=== PATIENT | male | born 1940 | race African-American/Black ===

== ENCOUNTER 2018-01-18 21:20 | Emergency (ER) | payer OTHER ==
[~2018-01-18] VITALS: Ht 167.6 cm; Wt 99.8 kg
[2018-01-18 21:20] VITALS: BP 149/94
[~2018-01-18 21:20] MED LIST: ALBU-136 IH; ARTOP OP; BACL10TA4 PO; CALC-232 PO; DABI75CA PO; DIVA125E1 PO; FINA5TAB5 PO; FLONAS NS; FURO-570 PO; GABA300C1 PO; MONT10TA35 PO; NITR0.4T95 SL; PANT40PD1 PO; PRED10TA5 PO; SENN-72 PO; SOTA80TA PO; SYN.025 PO; TAMS0.4C96 PO
[2018-01-18] MEDS ORDERED: LORA10TA19 PO (21:48)
[2018-01-18] MEDS ORDERED: LACT10SO1 PO (21:48)
[2018-01-18] MEDS ORDERED: SERMDI INH (21:48)
[2018-01-18] MEDS ORDERED: HYDR-5092 PO (21:48)
[2018-01-18] MEDS ORDERED: OMEP20TC12 PO (21:48)
[2018-01-18] MEDS ORDERED: ALBU3SOL83 IH (21:48)
[2018-01-18] MEDS ORDERED: fentaNYL 0.05 MG/ML VIAL IM ONE (22:05)
[2018-01-18 22:42] LABS: BASOPHILS # (AUTO) 0.2 K/uL (0.00-0.22); BASOPHILS % (AUTO) 2.4 % (0.0-2.0); EOSINOPHILS % (AUTO) 0.6 % (0.0-4.0); HEMATOCRIT 35.4 % (36-52); HEMOGLOBIN 10.1 g/dL (12.0-18.0); LYMPHOCYTES # (AUTO) 2.1 K/uL (2.0-11.5); LYMPHOCYTES % (AUTO) 29.4 % (20.5-51.1); MEAN CORPUSCULAR HEMOGLOBIN 19 pg (27-31); MEAN CORPUSCULAR HGB CONC 29 g/dL (33-37); MEAN CORPUSCULAR VOLUME 66.6 fL (80-94); MONOCYTES # (AUTO) 0.9 K/uL (0.8-1.0); MONOCYTES % (AUTO) 13.3 % (1.7-9.3); NEUTROPHILS # (AUTO) 3.9 K/uL (1.8-7.7); NEUTROPHILS % (AUTO) 54.3 % (42.2-75.2); PLATELET COUNT (AUTO) 244 K/uL (140-450); RED BLOOD CELL COUNT(AUTO) 5.31 MIL/uL (4.20-6.10); RED CELL DISTRIBUTION WIDTH 20.1 % (11.6-13.7); WHITE BLOOD COUNT (AUTO) 7.1 K/uL (4.8-10.8)
[2018-01-18 23:03] LABS: ALBUMIN 2.7 g/dL (3.4-5.0); ANION GAP 9.1 (8-16); ASPARTATE AMINOTRANSFERASE 8 U/L (15-37); CARBON DIOXIDE 33.3 mmol/L (21-32); CHLORIDE 104 mmol/L (98-107); CREATININE 1.2 mg/dL (0.7-1.3); GLUCOSE 121 mg/dL (74-106); LIPASE 61 U/L (73-393); POTASSIUM 4.4 mmol/L (3.5-5.1); SODIUM SERUM 142 mmol/L (136-145); TOTAL BILIRUBIN 0.4 mg/dL (0.0-1.0); UREA NITROGEN, BLOOD 17 mg/dL (7-18)
[2018-01-19 01:29] VITALS: BP 143/88
== END 2018-01-19 01:20 ==
LOC: MED 21:20
DX: R10.31 Right lower quadrant pain (principal); I48.91 Unspecified atrial fibrillation; J44.9 Chronic obstructive pulmonary disease, unspecified; E11.9 Type 2 diabetes mellitus without complications; K21.9 Gastro-esophageal reflux disease without esophagitis; I11.0 Hypertensive heart disease with heart failure; Z88.8 Allergy status to other drugs, medicaments and biological substances; Z88.0 Allergy status to penicillin; Z88.6 Allergy status to analgesic agent; Z79.899 Other long term (current) drug therapy
CPT/HCPCS: 36415; 74176; 80053; 83690; 85025; 96372; 99285; J3010

== ENCOUNTER 2018-05-03 09:31 | Inpatient (IN) | payer OTHER ==
[~2018-05-03] VITALS: Ht 167.6 cm; Wt 97.5 kg
[~2018-05-03 09:31] MED LIST changes: -ALBU-136 IH; +ALBU3SOL83 IH; -FLONAS NS; +HYDR-5092 PO; +LACT10SO1 PO; +LORA10TA19 PO; +OMEP20TC12 PO; -PANT40PD1 PO; +SERMDI INH
--- NOTE | 2018-05-03 09:31 | NUR ---
PATIENT BIBA TO BED 6 AT THIS TIME.
[2018-05-03 09:36] VITALS: BP 131/97
--- NOTE | 2018-05-03 09:45 | NUR ---
77 YO MALE BIB EMS FROM [facility] FOR SUDDEN ONSET OF SOB. ORIENTED TIMES 2 ON ARRIVAL. DENIES N/V/D; SKIN IS PINK/WARM/DRY; LUNGS: RHONCHI HEARD BL; HR EVEN AND REGULAR; PAIN OF 0/10 AT THIS TIME; VSS; PATIENT POSITIONED FOR COMFORT; HOB ELEVATED; BEDRAILS UP X2; BED DOWN. ER MD MADE AWARE OF PT STATUS.
--- NOTE | 2018-05-03 10:15 | NUR ---
LAB, RAD, AND RT AT BEDSIDE TO COLLECT LABS, ABG, AND CHEST X RAY
--- NOTE | 2018-05-03 10:28 | NUR ---
TECH AT BEDSIDE PREFORMING EKG
[2018-05-03 10:29] LABS: HEMATOCRIT 39.5 % (36-52); HEMOGLOBIN 10.9 g/dL (12.0-18.0); MEAN CORPUSCULAR HEMOGLOBIN 19 pg (27-31); MEAN CORPUSCULAR HGB CONC 28 g/dL (33-37); MEAN CORPUSCULAR VOLUME 68.2 fL (80-94); PLATELET COUNT (AUTO) 242 K/uL (140-450); RED BLOOD CELL COUNT(AUTO) 5.79 MIL/uL (4.20-6.10); RED CELL DISTRIBUTION WIDTH 21.6 % (11.6-13.7); WHITE BLOOD COUNT (AUTO) 9.9 K/uL (4.8-10.8)
[2018-05-03 10:46] LABS: ALBUMIN 2.8 g/dL (3.4-5.0); ANION GAP 5.9 (8-16); ASPARTATE AMINOTRANSFERASE 11 U/L (15-37); CARBON DIOXIDE 37.6 mmol/L (21-32); CHLORIDE 99 mmol/L (98-107); CREATININE 1.5 mg/dL (0.7-1.3); GLUCOSE 104 mg/dL (74-106); POTASSIUM 4.5 mmol/L (3.5-5.1); SODIUM SERUM 138 mmol/L (136-145); TOTAL BILIRUBIN 1.2 mg/dL (0.0-1.0); UREA NITROGEN, BLOOD 23 mg/dL (7-18)
--- NOTE | 2018-05-03 10:55 | NUR ---
ATTEMPTED IV, UNABLE TO OBTAIN AFTER 2 ATTEMPTS. INFORMED CHARGE NURSE.
[2018-05-03 11:16] LABS: LYMPHOCYTES % (MANUAL) 18 % (20-46); MONOCYTES % (MANUAL) 10 % (5-12)
[2018-05-03 11:24] LABS: APPEARANCE,URINE CLEAR (CLEAR); BILIRUBIN,URINE NEGATIVE (NEGATIVE); BLOOD, URINE NEGATIVE (NEGATIVE); COLOR,URINE YELLOW (YELLOW); LEUKOCYTE ESTERASE ,URINE NEGATIVE (NEGATIVE); NITRITE, URINE NEGATIVE (NEGATIVE); UGLUCOSE NEGATIVE (NEGATIVE)
[2018-05-03 11:28] LABS: RBC,URINE NONE SEEN /HPF (0-5); WBC,URINE 0-5 (RARE) /HPF (0-5)
--- NOTE | 2018-05-03 12:52 | NUR ---
PATIENT SLEEPING IN BED. STATES NO NEEDS. HE WANTS TO GO HOME.
[2018-05-03] MEDS ORDERED: ACETAMINOPHEN 325 MG TAB PO PRN (13:25)
[2018-05-03] MEDS ORDERED: DOCUSATE SODIUM 100 MG GELCAP PO PRN (13:25)
[2018-05-03] MEDS ORDERED: LORazepam 2 MG/ML VIAL IM/IVP PRN (13:25)
[2018-05-03] MEDS ORDERED: ONDANSETRON 4 MG/2 ML VIAL IM/IVP PRN (13:25)
[2018-05-03] MEDS ORDERED: DABI150C PO (13:55)
[2018-05-03] MEDS ORDERED: DIVA125E1 PO (13:55)
[2018-05-03] MEDS ORDERED: SYN.05 PO (13:59)
[2018-05-03 14:35] LABS: BARBITURATE, URINE NEG. ng/ml (NEG <=200); BENZODIAZEPINE, URINE NEG. ng/mL (NEG <=200); CANNABINOID, URINE NEG. ng/mL (NEG <=50); COCAINE, URINE NEG. ng/mL (NEG <=300); OPIATE, URINE POS. ng/mL (NEG <=2000); PHENCYCLIDINE SCREEN,URINE NEG. ng/mL (NEG <=25)
--- NOTE | 2018-05-03 14:36 | NUR ---
PATIENT ADMITTED TO DR CARMONA, [facility] STATUS. REPORT GIVEN TO KING FOR CONTINUED CARE. PATIENT STABLE UPON TRANSFER.
[2018-05-03 14:40] LABS: PROTHROMBIN TIME 12.7 secs (10.8-13.4)
[2018-05-03] MEDS ORDERED: HYDROcodone/APAP 10/325 MG 1 TAB TAB PO SCH (14:45)
--- NOTE | 2018-05-03 14:45 | NUR ---
PATIENT ADMITTED TO THE UNIT FROM ER. PATIENT IS LETHARGIC BUT AROUSABLE. PATIENT ON NON-REBREATHER MASK. O2 SAT 97% AT THIS TIME. BUE AND BLE +2 PITTING EDEMA NOTED. PATIENT HAS COOL EXTREMITIES. CAP REFILL >3 SECS. DIMINISHED LUNG SOUNDS NOTED. PATIENT PLACED ON TELE MONITORING. FALL PRECAUTIONS IN PLACE. WILL CONTINUE TO MONITOR
[2018-05-03 14:52] VITALS: BP 111/76
[2018-05-03] MEDS ORDERED: ALBUTEROL SULFATE/IPRATROPIU 3 ML SOL IH PRN (15:00)
[2018-05-03] MEDS ORDERED: FUROSEMIDE 40 MG/4 ML VIAL IVP SCH ×2 (15:00→17:00)
--- NOTE | 2018-05-03 15:00 | NUR ---
INFORMED DR THEODORE ABOUT PATIENT BEING ON A NON-REBREATHER MASK. PER DR THEODORE, KEEP PATIENT ON THE NON-REBREATHER FOR NOW AND CONTINUE TO MONITOR
[2018-05-03 15:10] LABS: FREE T4 (FREE THYROXINE) 1.09 ng/dL (0.76-1.46); PHOSPHORUS 3.8 mg/dL (2.5-4.9); THYROID STIMULATING HORMONE 1.03 uIU/mL (0.34-3.74)
[2018-05-03] MEDS ORDERED: SODIUM FERRIC GLUCONATE 125 MG in NACL 0.9% 100 ML IV SCH (16:00)
--- NOTE | 2018-05-03 16:10 | NUR ---
PATIENT EVALUATED BY DR SCOTT
[2018-05-03] MEDS: GABAPENTIN 300 MG CAP PO SCH (17:00)
[2018-05-03] MEDS: NACL 0.9% 1,000 ML IV SCH (17:07)
[2018-05-03] MEDS: FUROSEMIDE 40 MG/4 ML VIAL IVP SCH (18:01)
--- NOTE | 2018-05-03 18:02 | NUR ---
SCHEDULED GABAPENTIN PO NOT ADMINISTERED. PATIENT TOO LETHARGIC TO SWALLOW
[2018-05-03] MEDS: ALBUTEROL SULFATE/IPRATROPIU 3 ML SOL IH SCH (19:00)
--- NOTE | 2018-05-03 19:30 | NUR ---
PATIENT REPORT GIVEN AT BEDSIDE. PATIENT ASLEEP. NUCLEAR MED PRESENT IN THE ROOM FOR VQ SCAN
--- NOTE | 2018-05-03 19:30 | NUR ---
REPORT GIVEN BY BELINDA VANCE AT BEDSIDE FOR CONTINUITY OF CARE, PT IN STABLE CONDITION.
--- NOTE | 2018-05-03 19:33 | NUR ---
HOLD HHNTX DUE TO VQ SCAN AT BED SIDE
[2018-05-03 20:00] VITALS: BP 139/58
--- NOTE | 2018-05-03 20:00 | NUR ---
PT IN BED AOX2. PT WEARING MASK WITH O2 RUNNING AT 9 LITERS VIA VENTI MASK. PT SKIN INTACT WITH PITTING EDEMA ON ALL 4 EXTREMITIES. PLUS 4 ON FEET, PLUS 3 ON BILATERAL LOWER LEGS. AND PLUS 1 ON UPPER EXTREMITIES. V/S FOLLOWS T 97.6 P 58 R 18 B/P 113/78 02 97% WITH VENTI MASK.
[2018-05-03] MEDS: POLYVINYL ALCOHOL 1.4% OP 15 ML SOL OP SCH (21:00)
[2018-05-03] MEDS: DABIGATRAN ETEXILATE MESYLAT 75 MG CAP PO SCH (21:00)
--- NOTE | 2018-05-03 21:00 | NUR ---
PT IN BED WITH SIDE RAILS X2 UP AND ALL FALLS PRECAUTIONS IN PLACE. ABD DISTENDED WITH NO C/O PAIN IN ABDOMEN. BOWEL SOUNDS PRESENT. PT GIVEN AL SCHEDULED MEDS, EXCEPT FOR ARTIFICIAL TEARS AND PRADAXA WHICH ARE UNAVAILABLE AT THIS TIME. PT HAS NO C/O VOICED.
--- NOTE | 2018-05-03 21:30 | NUR ---
PT TURNED , CHANGED AND REPOSITIONED. ALL FALLS PRECAUTIONS IN PLACE. AND CALL RUBIO IN REACH.
[2018-05-03] MEDS: SOTALOL 80 MG TAB PO SCH (22:05)
[2018-05-03] MEDS: LACTULOSE 20 GM/30 ML UDC PO SCH (22:05)
[2018-05-03] MEDS: TAMSULOSIN 0.4 MG CAP PO SCH (22:06)
[2018-05-03] MEDS: DIVALPROEX SPRINKLES 125 MG CAPDR PO SCH (22:06)
[2018-05-03] MEDS: BACLOFEN 10 MG TAB PO SCH (22:06)
[2018-05-03] MEDS: SENNA 8.6 MG TAB PO SCH (22:07)
[2018-05-04] VITALS: BP 113/78
--- NOTE | 2018-05-04 | NUR ---
PT IN BED ALL FALLS PRECAUTIONS IN PLACE AND CALL RUBOI IN REACH. V/S FOLLOWS: T 97.2 P 78 R 18 B/P 139/85 02 91% WITH VENTI MASK AT 9 LITERS. PT TURN, CHANGED AND REPOSITIONED. NO C/O OF PAIN OR DISTRESS VOICED BY RESIDENT. ALL REQUESTED NEEDS ATTENDED BY STAFF.
[2018-05-04 04:00] VITALS: BP 131/88
--- NOTE | 2018-05-04 04:00 | NUR ---
PT C/O OF VENTI MASK SMELLING BADLY. SPOKE WITH RT CARMEN REGARDING ALTERNATIVE SUPPLIMENTAL 02. PRIMARY NURSE SUGGESTED OXIMIZER. RT SAID THAT IT WAS OK AND TO START WITH ABOUT 3 LITERS TO STAT PT AROUND 90%. PT PLACED ON OXIMIZER AND IS MORE COMFORTABLE. PT WAS CHANGED BUT REFUSED TO TURN. MOUTH CARE PROVIDED. V/S FOLLOWS: T 96.7 P 88 R 20 B/P 131/88 02 AT 21/2 LITERS OF 02 VIA OXIMIZER.
[2018-05-04] MEDS: LEVOTHYROXINE 0.025 MG TAB PO SCH (06:55)
[2018-05-04] MEDS: PANTOPRAZOLE 40 MG TABEC PO SCH (06:55)
[2018-05-04 07:25] LABS: BASOPHILS % (AUTO) 0.4 % (0.0-2.0); EOSINOPHILS % (AUTO) 0.1 % (0.0-4.0); HEMATOCRIT 40.8 % (36-52); HEMOGLOBIN 11.1 g/dL (12.0-18.0); LYMPHOCYTES # (AUTO) 1.5 K/uL (2.0-11.5); LYMPHOCYTES % (AUTO) 17.8 % (20.5-51.1); MEAN CORPUSCULAR HEMOGLOBIN 19 pg (27-31); MEAN CORPUSCULAR HGB CONC 27 g/dL (33-37); MONOCYTES % (AUTO) 11.8 % (1.7-9.3); NEUTROPHILS # (AUTO) 5.7 K/uL (1.8-7.7); NEUTROPHILS % (AUTO) 69.9 % (42.2-75.2); PLATELET COUNT (AUTO) 265 K/uL (140-450); RED BLOOD CELL COUNT(AUTO) 5.99 MIL/uL (4.20-6.10); RED CELL DISTRIBUTION WIDTH 21.6 % (11.6-13.7); WHITE BLOOD COUNT (AUTO) 8.2 K/uL (4.8-10.8)
[2018-05-04] MEDS: ALBUTEROL SULFATE/IPRATROPIU 3 ML SOL IH SCH ×3 (07:30→19:29)
--- NOTE | 2018-05-04 07:30 | NUR ---
ENDORSED CARE TO LOURDES RN DAYSHIFT NURSE AT BEDSIDE FOR CONTINUITY OF CARE, PT IN STABLE CONDITION.
--- NOTE | 2018-05-04 07:35 | NUR ---
RECEIVED PT FROM DATA COLLECTION INTERVIEWER NURSE, PT IS AWAKE AND LYING ON THE BED WITH SIDE RAILS UP AND CALL LIGHT WITHIN REACH, SAFETY AND FALL PRECAUTION ENFORCED. PT HAS AN IV LINE ON THE LEFT IJ G. 20 WITH NS INFUSING AT 10ML/HR, INTACT, PT IS ON A VENTURI MASK AT 9L. PT DENIES PAIN, RESPIRATION EVEN, ALERT AND CONVERSANT, NO SOB NOTED AND WILL CONTINUE TO MONITOR PT.
--- NOTE | 2018-05-04 07:38 | NUR ---
RT IS ON THE BEDSIDE AND GIVING BREATHING TX TO PT.
--- NOTE | 2018-05-04 07:58 | NUR ---
PATIENT HAS BEEN SCREENED AND CATEGORIZED HIGH NUTRITION RISK. PATIENT WILL BE SEEN WITHIN 1-2 DAYS OF ADMISSION. 05/04/18-05/05/[address]
[2018-05-04 08:00] VITALS: BP 123/69
[2018-05-04 08:16] LABS: MAGNESIUM 1.9 mg/dL (1.8-2.4); PHOSPHORUS 2.6 mg/dL (2.5-4.9)
[2018-05-04 08:17] LABS: CHOL/HDL RATIO 2.6 (1-4.5)
[2018-05-04 08:21] LABS: ANION GAP 4.9 (8-16); CARBON DIOXIDE 38.8 mmol/L (21-32); CHLORIDE 105 mmol/L (98-107); CREATININE 1.1 mg/dL (0.7-1.3); GLUCOSE 90 mg/dL (74-106); POTASSIUM 3.7 mmol/L (3.5-5.1); SODIUM SERUM 145 mmol/L (136-145); UREA NITROGEN, BLOOD 19 mg/dL (7-18)
[2018-05-04 08:22] LABS: FOLIC ACID 19.7 ng/mL (>3.0)
[2018-05-04] MEDS ORDERED: NON-FORMULARY ITEM (Calcium/Vitamin D (Calcium 500 + D 500 Mg-200 Iu) 1 TAB) PO SCH (09:00)
[2018-05-04] MEDS: FUROSEMIDE 40 MG/4 ML VIAL IVP SCH ×2 (09:51→18:07)
[2018-05-04] MEDS: LACTULOSE 20 GM/30 ML UDC PO SCH ×2 (09:52→21:00)
[2018-05-04] MEDS: BACLOFEN 10 MG TAB PO SCH ×2 (09:52→21:26)
[2018-05-04] MEDS: predniSONE 10 MG TAB PO SCH (09:53)
[2018-05-04] MEDS: DIVALPROEX SPRINKLES 125 MG CAPDR PO SCH ×2 (09:53→21:27)
[2018-05-04] MEDS: LORATADINE 10 MG TAB PO SCH (09:53)
[2018-05-04] MEDS: CALCIUM CARB/VIT-D 500 MG/200 IU 1 TAB PO SCH (09:54)
[2018-05-04] MEDS: MONTELUKAST SODIUM 10 MG TAB PO SCH (09:54)
[2018-05-04] MEDS: FINASTERIDE 5 MG TAB PO SCH (09:55)
[2018-05-04] MEDS: SOTALOL 80 MG TAB PO SCH ×2 (09:55→21:26)
[2018-05-04] MEDS: GABAPENTIN 300 MG CAP PO SCH ×3 (09:55→18:07)
[2018-05-04] MEDS: SENNA 8.6 MG TAB PO SCH ×2 (09:55→21:26)
--- NOTE | 2018-05-04 10:00 | NUR ---
PT IS AWAKE AND VITAL SIGNS CHECKED PER PARAMETER, MEDICATIONS GIVEN VIA ORAL AND PT TOLERATED IT. NO SIGN OF DISTRESS NOTED. WILL MONITOR PT.
[2018-05-04] MEDS: DABIGATRAN ETEXILATE MESYLAT 75 MG CAP PO SCH ×2 (10:28→21:36)
[2018-05-04] MEDS: POLYVINYL ALCOHOL 1.4% OP 15 ML SOL OP SCH ×2 (10:29→21:27)
[2018-05-04 12:00] VITALS: BP 113/62
--- NOTE | 2018-05-04 12:01 | NUR ---
05/04/18 RD INITIAL ASSESSMENT COMPLETED PLEASE REFER TO NUTRITION ASSESSMENT UNDER CARE ACTIVITY FOR ESTIMATED NUTRITIONAL NEEDS. 1. CONTINUE PUREE CCHO 60 GM PUREE DIET WITH NECTAR THICK LIQUIDS TOLERATED 2. RD TO FOLLOW-UP 3-5 DAYS, MODERATE RISK FRANKY CHOWDARY, RD
[2018-05-04] MEDS: NACL 0.9% 1,000 ML IV SCH (14:50)
[2018-05-04 16:00] VITALS: BP 127/100
--- NOTE | 2018-05-04 18:13 | NUR ---
PT IS AWAKE AND EATING HIS DINNER, VITAL SIGNS CHECKED AND IS WITHIN NORMAL LIMIT. MEDICATIONS GIVEN VIA IV PUSH AND ORAL AND PT TOLERATED IT. NO SIGN OF DISTRESS NOTED AND WILL MONITOR PT.
--- NOTE | 2018-05-04 19:00 | NUR ---
DIAMOND CATHETER WAS INSERTED TO PT NOW.
--- NOTE | 2018-05-04 19:20 | NUR ---
ENDORSED PT TO SPINNING FRAME FIXER NURSERICARDO FOR CONTINUITY OF CARE, PT IS STABLE AT THIS TIME.
--- NOTE | 2018-05-04 19:21 | NUR ---
RECEIVED REPORT FROM DAYSHIFT NURSE AT BEDSIDE FOR CONTINUITY OF CARE. PT AAOX2. PT IV NOTED LIJ 20G NS TKO. NO SOB NO S/S OF DISTRESS ON VENTURI MASK 5L. DIAMOND IN PLACE. BED LOWERED CALL LIGHT WITHIN REACH WILL CONTINUE TO MONITOR.
[2018-05-04 20:00] VITALS: BP 92/57
[2018-05-04] MEDS: TAMSULOSIN 0.4 MG CAP PO SCH (21:26)
[2018-05-05] VITALS: BP 114/63
[2018-05-05] MEDS: Z-GUARD PASTE TP SCH ×2 (01:03→13:00)
[2018-05-05 04:00] VITALS: BP 120/75
[2018-05-05] MEDS: PANTOPRAZOLE 40 MG TABEC PO SCH (06:45)
[2018-05-05] MEDS: LEVOTHYROXINE 0.025 MG TAB PO SCH (06:45)
--- NOTE | 2018-05-05 07:24 | NUR ---
ENDORSED REPORT TO DAYSHIFT NURSE AT BEDSIDE FOR CONTINUITY OF CA
--- NOTE | 2018-05-05 07:26 | NUR ---
RECEIVED REPORT FROM PM NURSE AT BEDSIDE. PT LYING ON HIS BED. PT ON CONTACT ISOLATION FOR HX M,RSA NARES. HAS LFT IJ 20 G, IVF INFUSING WELL. HAS DIAMOND CATHETER IN PLACE. PT IS ON VENTURI MASK 5L. PT IS IS IN SEMI FOWLERS POSITION. PT FALL RISK. CALL LIGHT WITHIN PT REACH. PLACED SUCTION TUBE NEAR PT. NO SIGN OF DISTRESS NOTED. UPDATE BOARD. INFORMED TO USE CALL LIGHT FOR NAY HELP. WILL CONTINUE TO MONITOR OT.
[2018-05-05] MEDS: ALBUTEROL SULFATE/IPRATROPIU 3 ML SOL IH SCH ×3 (07:44→18:34)
--- NOTE | 2018-05-05 07:59 | NUR ---
POST HHN THERAPY PLACED ON AN OXYMIZER AT 6LPM FOR BREAKFAST MEAL
[2018-05-05 08:00] VITALS: BP 105/52
[2018-05-05] MEDS: LORATADINE 10 MG TAB PO SCH (09:00)
[2018-05-05] MEDS: FUROSEMIDE 40 MG/4 ML VIAL IVP SCH ×2 (09:00→17:01)
[2018-05-05] MEDS: SENNA 8.6 MG TAB PO SCH ×2 (09:00→20:34)
[2018-05-05] MEDS: POLYVINYL ALCOHOL 1.4% OP 15 ML SOL OP SCH ×2 (09:00→21:00)
[2018-05-05] MEDS: CALCIUM CARB/VIT-D 500 MG/200 IU 1 TAB PO SCH (09:00)
[2018-05-05] MEDS: MONTELUKAST SODIUM 10 MG TAB PO SCH (09:00)
[2018-05-05] MEDS: BACLOFEN 10 MG TAB PO SCH ×2 (09:00→20:35)
[2018-05-05] MEDS: LACTULOSE 20 GM/30 ML UDC PO SCH ×2 (09:00→21:00)
[2018-05-05] MEDS: DIVALPROEX SPRINKLES 125 MG CAPDR PO SCH ×2 (09:00→20:36)
[2018-05-05] MEDS: FERROUS SULFATE 325 MG TABEC PO SCH (09:00)
[2018-05-05] MEDS: FINASTERIDE 5 MG TAB PO SCH (09:00)
[2018-05-05] MEDS: ASCORBIC ACID 500 MG TAB PO SCH (09:00)
[2018-05-05] MEDS: GABAPENTIN 300 MG CAP PO SCH ×3 (09:00→17:02)
[2018-05-05] MEDS: SOTALOL 80 MG TAB PO SCH ×2 (09:00→20:35)
[2018-05-05] MEDS: predniSONE 10 MG TAB PO SCH (09:00)
[2018-05-05] MEDS: DABIGATRAN ETEXILATE MESYLAT 75 MG CAP PO SCH ×2 (09:00→20:36)
[2018-05-05 09:16] LABS: BASOPHILS # (AUTO) 0.1 K/uL (0.00-0.22); BASOPHILS % (AUTO) 0.7 % (0.0-2.0); EOSINOPHILS % (AUTO) 0.2 % (0.0-4.0); HEMOGLOBIN 10.9 g/dL (12.0-18.0); LYMPHOCYTES # (AUTO) 1.8 K/uL (2.0-11.5); LYMPHOCYTES % (AUTO) 17.6 % (20.5-51.1); MEAN CORPUSCULAR HEMOGLOBIN 19 pg (27-31); MEAN CORPUSCULAR HGB CONC 28 g/dL (33-37); MEAN CORPUSCULAR VOLUME 67.7 fL (80-94); MONOCYTES # (AUTO) 1.1 K/uL (0.8-1.0); MONOCYTES % (AUTO) 10.4 % (1.7-9.3); NEUTROPHILS # (AUTO) 7.3 K/uL (1.8-7.7); NEUTROPHILS % (AUTO) 71.1 % (42.2-75.2); PLATELET COUNT (AUTO) 256 K/uL (140-450); RED BLOOD CELL COUNT(AUTO) 5.76 MIL/uL (4.20-6.10); RED CELL DISTRIBUTION WIDTH 21.4 % (11.6-13.7); WHITE BLOOD COUNT (AUTO) 10.3 K/uL (4.8-10.8)
[2018-05-05 09:29] LABS: ANION GAP 3.9 (8-16); CARBON DIOXIDE 38.9 mmol/L (21-32); CHLORIDE 105 mmol/L (98-107); CREATININE 1.3 mg/dL (0.7-1.3); GLUCOSE 124 mg/dL (74-106); MAGNESIUM 1.8 mg/dL (1.8-2.4); PHOSPHORUS 1.7 mg/dL (2.5-4.9); SODIUM SERUM 145 mmol/L (136-145); UREA NITROGEN, BLOOD 18 mg/dL (7-18)
[2018-05-05 09:31] LABS: POTASSIUM 2.8 mmol/L (3.5-5.1)
--- NOTE | 2018-05-05 10:02 | NUR ---
CM NOTE PATIENT HAS SECONDARY IEHP. PER IEHP SPIKE CHEN PH# [phone], IF PATIENT IS GOING TO SNF, FOR [facility] AUTH# [id number]. CHARGE NURSE PARIS HERNANDEZ.
--- NOTE | 2018-05-05 10:27 | NUR ---
ADMINISTERED MEDS TO PT ORDERED. CRUSHED PILLS AND MIXED WITH APPLE SAUCE. PT TOLERATED HIS MEDS WELL. NO SIGN OF DISTRESS NOTED. PT HELPED WITH REPOSITIONING. CALL LIGHT WITHIN PT REACH. WILL CONTINUE TO MONITOR PT.
[2018-05-05] MEDS ORDERED: MAG SULF 2000 MG/WATER PREMIX 50 ML IV SCH (11:00)
[2018-05-05] MEDS ORDERED: POTASSIUM CHLORIDE 10 MEQ TABER PO SCH (11:00)
[2018-05-05] MEDS: SODIUM PHOS / POTASSIUM PHOS 1 PKT PDR PO SCH ×2 (11:49→17:01)
[2018-05-05 12:00] VITALS: BP 103/57
[2018-05-05] MEDS ORDERED: POTASSIUM CHLORIDE 40 MEQ, LIDOCAINE MPF 1% - 5 mL VIAL 25 MG in NACL 0.9% 250 ML IV SCH (12:00)
--- NOTE | 2018-05-05 12:00 | NUR ---
CHECKED ON PT. REPOSITIONED PT AND ADMINISTERED MEDS ORDERED. TOLERATED WELL. NO SIGN OF DISTRESS NOTED. PLACED CALL LIGHT WITHIN REACH. ALL SAFETY MEASURE IN PLACE. WILL CONTINUE TO MONITOR PT.
--- NOTE | 2018-05-05 13:22 | NUR ---
S.T. Bedside swallow eval completed. See report for details. Pt presents with moderate oral dysphagia c/b labial leakage and limited lingual ROM. Pt is impulsive, and drinks large amounts at one time, which can sometimes result in coughing, per TREATING PLANT OPERATOR. Pt also did not agree to sitting fully upright for p.o. intake. Recommend: 1) Continue current diet textures of puree and thin liquids. 2) 1:1 feeder with strict aspiration precautions, pacing & controlling liquid intake 3) P.O. meds to be crushed. No further tx indicated at this time as pt does not present as strong rehab candidate, and non-compliance. DC to [facility]. Time [id number]
[2018-05-05] MEDS: HYDROcodone/APAP 5/325 MG 1 TAB TAB PO PRN (13:30)
--- NOTE | 2018-05-05 13:44 | NUR ---
SATURATION 97% ON SUPPLEMENTAL OXYGEN AT 5LPM VIA OXYMIZER POST HHN THERAPY TITRATED FIO2 TO 3 LPM SITAL/RN NOTIFIED
[2018-05-05] MEDS: NACL 0.9% 1,000 ML IV SCH (14:50)
--- NOTE | 2018-05-05 15:00 | NUR ---
CHECKED ON PT. ASSISTED REAL ESTATE MANAGER TO REPOSITION PT. HAS SMALL BM. CALL LIGHT WITHIN PT REACH. DENIES ANY PAIN. NO SIGN OF DISTRESS NOTED. WILL CONTINUE TO MONITOR PT.
[2018-05-05 16:00] VITALS: BP 103/61
[2018-05-05 17:03] LABS: ANION GAP 2.7 (8-16); CARBON DIOXIDE 35.6 mmol/L (21-32); CHLORIDE 110 mmol/L (98-107); CREATININE 1.3 mg/dL (0.7-1.3); GLUCOSE 137 mg/dL (74-106); POTASSIUM 4.3 mmol/L (3.5-5.1); SODIUM SERUM 144 mmol/L (136-145); UREA NITROGEN, BLOOD 19 mg/dL (7-18)
--- NOTE | 2018-05-05 17:14 | NUR ---
ADMINISTERED MEDS TO PT ORDERED TOLERATED WELL. NO SIGN OF DISTRESS NOTED. WILL CONTINUE TO MONITOR PT.
--- NOTE | 2018-05-05 18:30 | NUR ---
CHECKED ON PT. EMERGENCY SERVICES PROFESSIONAL HELPING PT TO FEED. CHANGED THE PT. NO SIGN OF DISTRESS NOTED. ALL SAFETY MEASURE IN PLACE. WILL CONTINUE TO MONITOR PT.
--- NOTE | 2018-05-05 19:10 | NUR ---
ENDORSED PT TO PM NURSE AT BEDSIDE. PT LYING COMFORTABLY ON HIS BED. NO SIGN OF DISTRESS NOTED. PT IN STABLE CONDITION.
--- NOTE | 2018-05-05 19:11 | NUR ---
RECEIVED REPORT FROM DAYSHIFT NURSE AT BEDSIDE FOR CONTINUITY OF CARE. PT AAOX2. PT IV NOTED LIJ 20G TKO. NO SOB NO S/S OF DISTRESS ON 3L OXIMYZER. DIAMOND IN PLACE. BED LOWERED CALL LIGHT WITHIN REACH. WILL CONTINUE TO MONITOR.
[2018-05-05 19:52] VITALS: BP 105/82
[2018-05-05] MEDS: TAMSULOSIN 0.4 MG CAP PO SCH (20:35)
--- NOTE | 2018-05-05 21:00 | NUR ---
PT BECOMES CONFUSED. PT TOOK MEDS CRUSHED IN APPLE SAUCE PT ABLE TO DRINK THIN LIQUIDS WELL. WILL CONTINUE TO MONITOR.
[2018-05-06] VITALS: BP 89/52
[2018-05-06] MEDS: Z-GUARD PASTE TP SCH ×2 (01:05→13:40)
[2018-05-06 03:55] VITALS: BP 108/68
[2018-05-06] MEDS: HYDROcodone/APAP 5/325 MG 1 TAB TAB PO PRN (05:04)
[2018-05-06] MEDS: SODIUM PHOS / POTASSIUM PHOS 1 PKT PDR PO SCH (06:38)
[2018-05-06] MEDS: LEVOTHYROXINE 0.025 MG TAB PO SCH (06:38)
[2018-05-06] MEDS: PANTOPRAZOLE 40 MG TABEC PO SCH (06:39)
--- NOTE | 2018-05-06 07:26 | NUR ---
ENDORSED REPORT TO DAYSHIFT NURSE AT BEDSIDE FOR CONTINUITY OF CARE.
[2018-05-06 07:35] LABS: ANION GAP 0.1 (8-16); CARBON DIOXIDE 37.7 mmol/L (21-32); CHLORIDE 112 mmol/L (98-107); CREATININE 1.2 mg/dL (0.7-1.3); GLUCOSE 101 mg/dL (74-106); POTASSIUM 3.8 mmol/L (3.5-5.1); SODIUM SERUM 146 mmol/L (136-145); UREA NITROGEN, BLOOD 19 mg/dL (7-18)
[2018-05-06] MEDS: ALBUTEROL SULFATE/IPRATROPIU 3 ML SOL IH SCH ×3 (07:35→19:27)
[2018-05-06 07:37] LABS: MAGNESIUM 1.9 mg/dL (1.8-2.4); PHOSPHORUS 2.7 mg/dL (2.5-4.9)
[2018-05-06 07:40] LABS: BASOPHILS % (AUTO) 0.5 % (0.0-2.0); EOSINOPHILS % (AUTO) 0.2 % (0.0-4.0); HEMATOCRIT 37.9 % (36-52); HEMOGLOBIN 10.5 g/dL (12.0-18.0); LYMPHOCYTES # (AUTO) 2.1 K/uL (2.0-11.5); LYMPHOCYTES % (AUTO) 22.2 % (20.5-51.1); MEAN CORPUSCULAR HEMOGLOBIN 19 pg (27-31); MEAN CORPUSCULAR HGB CONC 28 g/dL (33-37); MEAN CORPUSCULAR VOLUME 68.4 fL (80-94); MONOCYTES # (AUTO) 1.4 K/uL (0.8-1.0); MONOCYTES % (AUTO) 14.3 % (1.7-9.3); NEUTROPHILS # (AUTO) 5.9 K/uL (1.8-7.7); NEUTROPHILS % (AUTO) 62.8 % (42.2-75.2); PLATELET COUNT (AUTO) 256 K/uL (140-450); RED BLOOD CELL COUNT(AUTO) 5.53 MIL/uL (4.20-6.10); RED CELL DISTRIBUTION WIDTH 21.5 % (11.6-13.7); WHITE BLOOD COUNT (AUTO) 9.5 K/uL (4.8-10.8)
[2018-05-06 08:00] VITALS: BP 100/68
[2018-05-06] MEDS: POLYVINYL ALCOHOL 1.4% OP 15 ML SOL OP SCH ×2 (09:00→20:56)
--- NOTE | 2018-05-06 09:45 | NUR ---
ADMINISTERED MEDS TO PT ORDERED. TOLERAED WELL. NO SIGN OF DISTRESS NOTED. HELPED PT TO BE PULLED UP WITH HELP OF STUDENT NURSE. NO SIGN OF DISTRESS NOTED. WILL CONTINUE TO MONITOR PT.
[2018-05-06] MEDS: DIVALPROEX SPRINKLES 125 MG CAPDR PO SCH ×2 (09:48→20:43)
[2018-05-06] MEDS: predniSONE 10 MG TAB PO SCH (09:48)
[2018-05-06] MEDS: MONTELUKAST SODIUM 10 MG TAB PO SCH (09:49)
[2018-05-06] MEDS: FERROUS SULFATE 325 MG TABEC PO SCH (09:49)
[2018-05-06] MEDS: ASCORBIC ACID 500 MG TAB PO SCH (09:49)
[2018-05-06] MEDS: FINASTERIDE 5 MG TAB PO SCH (09:49)
[2018-05-06] MEDS: CALCIUM CARB/VIT-D 500 MG/200 IU 1 TAB PO SCH (09:50)
[2018-05-06] MEDS: SENNA 8.6 MG TAB PO SCH ×2 (09:50→20:44)
[2018-05-06] MEDS: BACLOFEN 10 MG TAB PO SCH ×2 (09:51→20:44)
[2018-05-06] MEDS: SOTALOL 80 MG TAB PO SCH ×2 (09:51→20:44)
[2018-05-06] MEDS: LORATADINE 10 MG TAB PO SCH (09:52)
[2018-05-06] MEDS: FUROSEMIDE 40 MG/4 ML VIAL IVP SCH ×2 (09:56→17:00)
[2018-05-06] MEDS: LACTULOSE 20 GM/30 ML UDC PO SCH ×2 (10:06→20:47)
[2018-05-06] MEDS: GABAPENTIN 300 MG CAP PO SCH ×3 (10:07→17:37)
[2018-05-06] MEDS: DABIGATRAN ETEXILATE MESYLAT 75 MG CAP PO SCH ×2 (10:12→20:47)
[2018-05-06 12:00] VITALS: BP 91/53
--- NOTE | 2018-05-06 13:40 | NUR ---
ADMINISTERED MEDS TO PT ORDERED. TOLERATED WELL. NO SIGN OF DISTRESS NOTED. WILL CONTINUE TO MONITOR PT.
[2018-05-06] MEDS: NACL 0.9% 1,000 ML IV SCH (14:50)
--- NOTE | 2018-05-06 15:30 | NUR ---
CHECKED ON PT. SLEEPING COMFORTABLY IN HER BED. NO SIGN OF DISTRESS NOTED. WILL CONTINUE TO MONITOR PT.
[2018-05-06 16:00] VITALS: BP 92/72
--- NOTE | 2018-05-06 17:40 | NUR ---
ADMINISTERED MEDS TO PT ORDERED. HELD LASIX , BP 95/66. NO SIGN OF DISTRESS NOTED. ALL SAFETY MEASURE IN PLACE.WILL CONTINUE TO MONITOR PT.
--- NOTE | 2018-05-06 18:30 | NUR ---
CHECKED ON PT. LYING COMFORTABLY ON BED. PT ASKING FOR LACTULOSE. INFORMED THAT WILL BE GIVEN AT 2100 AT THE SCHEDULED TIME. NO SIGN OF DISTRESS NOTED.ALL SAFETY MEASURE IN PLACE. WILL CONTINUE CONTINUE TO MONITOR PT.
--- NOTE | 2018-05-06 19:10 | NUR ---
ENDORSED PT TO PM NURSE AT BEDSIDE. PT IN STABLE CONDITION.
--- NOTE | 2018-05-06 19:11 | NUR ---
RECEIVED REPORT FROM AM RN AT BEDSIDE FOR CONTINUITY OF CARE. PT A/Ox2. PT IV NOTED LIJ 20G TKO. NO SOB NO S/S OF DISTRESS ON 3L OXIMIZER. DIAMOND CATHETER IN PLACE. BED LOWERED CALL LIGHT WITHIN REACH. WILL CONTINUE TO MONITOR.
[2018-05-06 20:00] VITALS: BP 113/69
[2018-05-06] MEDS: TAMSULOSIN 0.4 MG CAP PO SCH (20:44)
--- NOTE | 2018-05-06 21:45 | NUR ---
PATIENT ASLEEP. WILL CONTINUE TO MONITOR.
[2018-05-07] VITALS: BP 122/71
--- NOTE | 2018-05-07 00:03 | NUR ---
ROUNDS MADE, VITALS TAKEN. NO SOB OR DISTRESS NOTED.
[2018-05-07] MEDS: HYDROcodone/APAP 5/325 MG 1 TAB TAB PO PRN ×2 (00:08→08:44)
[2018-05-07] MEDS: Z-GUARD PASTE TP SCH (02:03)
--- NOTE | 2018-05-07 02:10 | NUR ---
PATIENT ASLEEP, EYES CLOSED, VISIBLE CHEST RISE AND FALL NOTED. WILL CONTINUE TO MONITOR.
[2018-05-07 04:00] VITALS: BP 115/78
--- NOTE | 2018-05-07 04:01 | NUR ---
VITALS TAKEN, NO SOB OR DISTRESS NOTED. WILL CONTINUE TO MONITOR.
[2018-05-07] MEDS: LEVOTHYROXINE 0.025 MG TAB PO SCH (06:03)
[2018-05-07] MEDS: PANTOPRAZOLE 40 MG TABEC PO SCH (06:44)
[2018-05-07 06:56] LABS: BASOPHILS % (AUTO) 0.4 % (0.0-2.0); EOSINOPHILS # (AUTO) 0.1 K/uL (0-0.4); EOSINOPHILS % (AUTO) 0.6 % (0.0-4.0); HEMATOCRIT 36.9 % (36-52); HEMOGLOBIN 10.3 g/dL (12.0-18.0); LYMPHOCYTES # (AUTO) 2.4 K/uL (2.0-11.5); LYMPHOCYTES % (AUTO) 26.2 % (20.5-51.1); MEAN CORPUSCULAR HEMOGLOBIN 19 pg (27-31); MEAN CORPUSCULAR HGB CONC 28 g/dL (33-37); MEAN CORPUSCULAR VOLUME 68.1 fL (80-94); MONOCYTES # (AUTO) 1.3 K/uL (0.8-1.0); MONOCYTES % (AUTO) 14.1 % (1.7-9.3); NEUTROPHILS # (AUTO) 5.3 K/uL (1.8-7.7); NEUTROPHILS % (AUTO) 58.7 % (42.2-75.2); PLATELET COUNT (AUTO) 260 K/uL (140-450); RED BLOOD CELL COUNT(AUTO) 5.42 MIL/uL (4.20-6.10); RED CELL DISTRIBUTION WIDTH 21.8 % (11.6-13.7)
--- NOTE | 2018-05-07 07:10 | NUR ---
ENDORSED PATIENT TO AM SHIFT RN. PATIENT IN STABLE CONDITION.
--- NOTE | 2018-05-07 07:11 | NUR ---
RECEIVED REPORT FROM PM NURSE AT BEDSIDE. PT LYING COMFORTABLY, COMMUNICATING WELL. NO SIGN OF DISTRESS NOTED. CALL LIGHT WITHIN REACH. IVF INFUSING WELL. INFORMED TO CALL LIGHT FOR ANY HELP. WILL CONTINUE TO MONITOR PT.
[2018-05-07] MEDS: ALBUTEROL SULFATE/IPRATROPIU 3 ML SOL IH SCH (07:17)
[2018-05-07 07:29] LABS: ANION GAP 3.2 (8-16); CARBON DIOXIDE 34.3 mmol/L (21-32); CHLORIDE 109 mmol/L (98-107); CREATININE 1.1 mg/dL (0.7-1.3); GLUCOSE 95 mg/dL (74-106); POTASSIUM 3.5 mmol/L (3.5-5.1); SODIUM SERUM 143 mmol/L (136-145); UREA NITROGEN, BLOOD 20 mg/dL (7-18)
[2018-05-07 08:00] VITALS: BP 93/61
[2018-05-07] MEDS: LORATADINE 10 MG TAB PO SCH (08:44)
[2018-05-07] MEDS: GABAPENTIN 300 MG CAP PO SCH (08:44)
[2018-05-07] MEDS: SOTALOL 80 MG TAB PO SCH (08:44)
[2018-05-07] MEDS: DIVALPROEX SPRINKLES 125 MG CAPDR PO SCH (08:45)
[2018-05-07] MEDS: FERROUS SULFATE 325 MG TABEC PO SCH (08:45)
[2018-05-07] MEDS: predniSONE 10 MG TAB PO SCH (08:45)
[2018-05-07] MEDS: MONTELUKAST SODIUM 10 MG TAB PO SCH (08:45)
[2018-05-07] MEDS: CALCIUM CARB/VIT-D 500 MG/200 IU 1 TAB PO SCH (08:45)
[2018-05-07] MEDS: BACLOFEN 10 MG TAB PO SCH (08:46)
[2018-05-07] MEDS: SENNA 8.6 MG TAB PO SCH (08:46)
[2018-05-07] MEDS: ASCORBIC ACID 500 MG TAB PO SCH (08:46)
[2018-05-07] MEDS: LACTULOSE 20 GM/30 ML UDC PO SCH (08:46)
[2018-05-07] MEDS: FINASTERIDE 5 MG TAB PO SCH (08:46)
[2018-05-07] MEDS: FUROSEMIDE 40 MG/4 ML VIAL IVP SCH (08:47)
[2018-05-07] MEDS: DABIGATRAN ETEXILATE MESYLAT 75 MG CAP PO SCH (08:48)
--- NOTE | 2018-05-07 09:00 | NUR ---
ADMINISTERED MEDS TO PT ORDERED. TOLERATED WELL. NO SIGN OF DISTRESS NOTED. WILL CONTINUE TO MONITOR PT.
[2018-05-07] MEDS: POLYVINYL ALCOHOL 1.4% OP 15 ML SOL OP SCH (09:14)
[2018-05-07 12:00] VITALS: BP 105/55
--- NOTE | 2018-05-07 12:15 | NUR ---
DISCONTINUED DIAMOND CATHETER FROM PT, TOOK OUT THE IJ CATHETER FORM PT PT IS NOT ON ABX. NO SIGN OF DISTRESS NOTED. PT ASKING TO BE FEED BEFORE LEAVING TO SNF. TRANSPORT AT THE BEDSIDE. WAITING FOR THE PT TO BE FINISHED WITH EATING. STUDENT NURSE FEEDING THE PATIENT. ALL DISCHARGE INSTRUCTION GIVEN. PT TO FOLLOW UP WITH DR CARMONA AT SNF. PT STABLE .
--- NOTE | 2018-05-07 13:00 | NUR ---
PT LEFT THE HOSPITAL WITH [facility]. PT STABLE AT TIME OF DISCHARGE. FACILITY CALLED AND REPORT PROVIDE. DISCHARGE PACKET PROVIDED WITH TRANSPORT PERSONNEL.
== END 2018-05-07 13:00 | DRG 682 ==
LOC: MED 09:31 → MTU 13:24
PROVIDERS: ADMIT Family Medicine; ATTEND Family Medicine
DX: N17.0 Acute kidney failure with tubular necrosis (principal); J18.9 Pneumonia, unspecified organism; J96.01 Acute respiratory failure with hypoxia; I50.43 Acute on chronic combined systolic (congestive) and diastolic (congestive) heart failure; E43 Unspecified severe protein-calorie malnutrition; I13.0 Hypertensive heart and chronic kidney disease with heart failure and stage 1 through stage 4 chronic kidney disease, or unspecified chronic kidney disease; J44.0 Chronic obstructive pulmonary disease with (acute) lower respiratory infection; E87.1 Hypo-osmolality and hyponatremia; E03.9 Hypothyroidism, unspecified; E11.21 Type 2 diabetes mellitus with diabetic nephropathy; F03.90 Unspecified dementia, unspecified severity, without behavioral disturbance, psychotic disturbance, mood disturbance, and anxiety; I25.10 Atherosclerotic heart disease of native coronary artery without angina pectoris; K21.9 Gastro-esophageal reflux disease without esophagitis; N18.3 Chronic kidney disease, stage 3 (moderate); F31.9 Bipolar disorder, unspecified; I48.0 Paroxysmal atrial fibrillation; N40.0 Benign prostatic hyperplasia without lower urinary tract symptoms; F63.9 Impulse disorder, unspecified; K59.00 Constipation, unspecified; D64.9 Anemia, unspecified; D50.9 Iron deficiency anemia, unspecified; E83.39 Other disorders of phosphorus metabolism; E11.65 Type 2 diabetes mellitus with hyperglycemia; Z68.34 Body mass index [BMI] 34.0-34.9, adult; I25.2 Old myocardial infarction; Z86.73 Personal history of transient ischemic attack (TIA), and cerebral infarction without residual deficits; Z87.891 Personal history of nicotine dependence; Z88.0 Allergy status to penicillin; Z88.2 Allergy status to sulfonamides; Z88.8 Allergy status to other drugs, medicaments and biological substances
CPT/HCPCS: 36415; 36600; 71045; 76705; 78582; 80048; 80053; 80305; 81001; 82140; 82150; 82607; 82728; 82746; 82803; 82948; 83036; 83540; 83605; 83690; 83735; 83880; 84100; 84439; 84443; 84484; 85025; 85045; 85379; 85610; 85730; 87040; 87081; 87086; 92610; 93005; 93925; 93970; 94640; 99285; J1940; J2001; J2916; J3475; J3480; J7030; J7512; J7620; Q0092

== ENCOUNTER 2018-07-08 11:04 | Inpatient (IN) | payer OTHER ==
[~2018-07-08] VITALS: Ht 165.1 cm; Wt 101.2 kg
[~2018-07-08 11:04] MED LIST changes: +DABI150C PO; -DABI75CA PO; -NITR0.4T95 SL; -SYN.025 PO; +SYN.05 PO
--- NOTE | 2018-07-08 11:04 | NUR ---
Patient DAVIS ACLS from [facility], transferred to bed 11. RN evaluating patient at bedside.
[2018-07-08 11:05] VITALS: BP 137/91
--- NOTE | 2018-07-08 11:20 | NUR ---
multiple attempts to iv start with no success---md notified
--- NOTE | 2018-07-08 11:41 | NUR ---
development technologist at bedside.
--- NOTE | 2018-07-08 12:21 | NUR ---
lab at bedside
--- NOTE | 2018-07-08 12:40 | NUR ---
DIAMOND CATH INSERTED. PT TOLERATED PROCEDURE WELL.
[2018-07-08 12:42] LABS: BASOPHILS % (AUTO) 0.5 % (0.0-2.0); EOSINOPHILS % (AUTO) 0.1 % (0.0-4.0); HEMATOCRIT 42.8 % (36-52); HEMOGLOBIN 12.1 g/dL (12.0-18.0); LYMPHOCYTES # (AUTO) 2.2 K/uL (2.0-11.5); LYMPHOCYTES % (AUTO) 26.1 % (20.5-51.1); MEAN CORPUSCULAR HEMOGLOBIN 20 pg (27-31); MEAN CORPUSCULAR HGB CONC 28 g/dL (33-37); MEAN CORPUSCULAR VOLUME 70.5 fL (80-94); MONOCYTES # (AUTO) 1.1 K/uL (0.8-1.0); MONOCYTES % (AUTO) 13.4 % (1.7-9.3); NEUTROPHILS % (AUTO) 59.9 % (42.2-75.2); PLATELET COUNT (AUTO) 195 K/uL (140-450); RED BLOOD CELL COUNT(AUTO) 6.07 MIL/uL (4.20-6.10); RED CELL DISTRIBUTION WIDTH 21.8 % (11.6-13.7); WHITE BLOOD COUNT (AUTO) 8.3 K/uL (4.8-10.8)
[2018-07-08 12:53] LABS: ANION GAP 8.8 (8-16); CARBON DIOXIDE 36.3 mmol/L (21-32); CHLORIDE 103 mmol/L (98-107); CREATININE 1.3 mg/dL (0.7-1.3); GLUCOSE 105 mg/dL (74-106); POTASSIUM 4.1 mmol/L (3.5-5.1); SODIUM SERUM 144 mmol/L (136-145); UREA NITROGEN, BLOOD 23 mg/dL (7-18)
[2018-07-08 13:01] LABS: MAGNESIUM 2.3 mg/dL (1.8-2.4); URIC ACID 7.6 mg/dL (2.6-7.2)
[2018-07-08 13:03] LABS: ALBUMIN 3.1 g/dL (3.4-5.0); ASPARTATE AMINOTRANSFERASE 18 U/L (15-37)
[2018-07-08 13:04] LABS: PROTHROMBIN TIME 11.7 secs (10.8-13.4)
[2018-07-08 13:10] LABS: D-DIMER < 100 ng/ml (0-400)
[2018-07-08 13:13] LABS: ACETONE, SERUM NEGATIVE (NEGATIVE)
[2018-07-08 13:24] LABS: APPEARANCE,URINE HAZY (CLEAR); BILIRUBIN,URINE NEGATIVE (NEGATIVE); BLOOD, URINE 2+ (NEGATIVE); COLOR,URINE YELLOW (YELLOW); LEUKOCYTE ESTERASE ,URINE 1+ (NEGATIVE); NITRITE, URINE POSITIVE (NEGATIVE); UGLUCOSE NEGATIVE (NEGATIVE)
[2018-07-08] MEDS ORDERED: AZTREONAM 1,000 MG in DEXTROSE 5% 50 ML IV SCH (14:05)
[2018-07-08] MEDS ORDERED: ONDANSETRON 4 MG/2 ML VIAL IM/IVP PRN (14:15)
[2018-07-08] MEDS ORDERED: DOCUSATE SODIUM 100 MG GELCAP PO PRN (14:15)
[2018-07-08] MEDS ORDERED: CLINDAMYCIN 600 MG/4 ML VIAL IV ONE (14:30)
[2018-07-08] MEDS ORDERED: AZTREONAM 1,000 MG VIAL ONE (14:41)
[2018-07-08 14:45] LABS: BARBITURATE, URINE NEG. ng/ml (NEG <=200); BENZODIAZEPINE, URINE NEG. ng/mL (NEG <=200); CANNABINOID, URINE NEG. ng/mL (NEG <=50); COCAINE, URINE NEG. ng/mL (NEG <=300); OPIATE, URINE POS. ng/mL (NEG <=2000); PHENCYCLIDINE SCREEN,URINE NEG. ng/mL (NEG <=25)
[2018-07-08 14:52] LABS: CHOL/HDL RATIO 2.2 (1-4.5); FREE T4 (FREE THYROXINE) 0.94 ng/dL (0.76-1.46); PHOSPHORUS 3.3 mg/dL (2.5-4.9); THYROID STIMULATING HORMONE 1.22 uIU/mL (0.34-3.74)
[2018-07-08] MEDS: ACETAMINOPHEN 325 MG TAB PO PRN (15:37)
--- NOTE | 2018-07-08 16:10 | NUR ---
PATIENT ARRIVED UNIT VIA GURNEY ACCOMPANIED BY ER NURSE. PATIENT AOX2 TO PERSON AND DATE. PATIENT IS ABLE TO MAKE KNOWN NEEDS AND FOLLOWS COMMANDS. DENIES PAIN. RESPIRATION EVEN AND UNLABORED. ON 2LPM NASAL CANNULA. IV ON R HAND 22G, INFUSING PER MD ORDER. SKIN DRY AND CLEAN. DIAMOND CATHETER IN PLACE AND DRAINING YELLOW URINE. PATIENT IS BEDREST. ORIENTED PATIENT TO THE ROOM, HOW TO UES THE CALL LIGHT, BED REMOTE, AND TV. DISCUSSED PLAN OF CARE WITH PATIENT. VITAL SIGNS TAKEN, NOTIFIED DR WILLIAM FOR LOW SPO2 AND BP. MRSA NARES COLLECTED. CHANGED PATIENT INTO YELLOW GOWN, YELLOW SOCK, AND APPLIED WRIST BAND. FALL PROTOCOL SIGN POSTED. STRICT I&O SIGN POSTED. CONTACT PRECAUTION SIGN POSTED. SEQUENTIAL COMPRESSION SOCKS IN PLACE. TELE MONITOR ATTACHED. SAFETY MEASURES IN PLACE. BED IN LOW POSITION AND CALL LIGHT WITHIN REACH.
--- NOTE | 2018-07-08 16:25 | NUR ---
Pt transferred to Telemetry Rm 118A. Pt report given to RAJIV Moreno.
--- NOTE | 2018-07-08 16:25 | NUR ---
RECEIVED CRITICAL LAB VALUES FOR LACTIC ACID 4.1. NOTIFIED DR WILLIAM AND PER DR WILLIAM THAT HE WILL PUT IN ORDER FOR IT.
--- NOTE | 2018-07-08 16:28 | NUR ---
RT CAME AND CHANGED PATIENT INTO 7LPM OXIMIZER AND SPO2 IS AT 95% AT THIS TIME.
--- NOTE | 2018-07-08 16:30 | NUR ---
ASSISTED PT AND PRIMARY NURSE TO TURN PATIENT, PT FOLLOWS COMMANDS WELL, PT TURNS HIMSELF WITH SOME ASSIST.
[2018-07-08] MEDS: DEXT 5% /NACL 0.9% 1,000 ML IV SCH (16:42)
[2018-07-08] MEDS ORDERED: ALBUTEROL SULFATE/IPRATROPIU 3 ML SOL IH PRN (16:45)
--- NOTE | 2018-07-08 16:48 | NUR ---
SPUTUM SPECIMEN CUP LABELED AND PREPARED. UNABLE TO COLLECT SPUTUM AT THIS TIME. WILL ENDORSE TO NEXT SHIFT RN.
[2018-07-08] MEDS ORDERED: NACL 0.9% 3,000 ML IV ONE (16:50)
--- NOTE | 2018-07-08 16:55 | NUR ---
CALLED AND SPOKE WITH LIV DAMON FROM [facility] AND OBTAINED VACCINES INFORMATION. PER LIV, PATIENT RECEIVED PNA VACCINE ON 01/2015 AND INFLUENZA VACCINE ON 12/2017. MADE NOTE ON PATIENT'S CHART.
[2018-07-08] MEDS: GABAPENTIN 300 MG CAP PO SCH (17:00)
[2018-07-08 17:01] VITALS: BP 88/54
[2018-07-08] MEDS: ALBUTEROL SULFATE/IPRATROPIU 3 ML SOL IH SCH (19:24)
--- NOTE | 2018-07-08 19:25 | NUR ---
RECEIVED FROM AM RN IN BED SLEEPING. PILLOW SUPPORT TO PRESSURE AREAS. CALL LIGHT WITH IN REACH. PT. AT THIS TIME WITH NS BOLUS RT LOW BP. PRESENTLY BP IS 93/57. NS INFUSING BOLUS WITH ORDER OF 3 LITERS. RIGHT NOW INFUSING #2 UNIT. 0N 7LPM/OXYMIZER WITH 02 SAT OF 97-98 %. REFUSED TO OPEN EYES AND GETS DEFENSIVE BY NOT WANTING TO BE CHANGED POSITION. GOES BACK TO SLEEP IMMEDIATELY. NON VERBAL AT THIS TIME. PT. JUST GROWLS IF MOVED. TELEMETRY MONITORING. DX. OF CHANGE OF LOC, PNA AND UTI.
--- NOTE | 2018-07-08 19:30 | NUR ---
DR BENÍTEZ MADE AWARE OF PT'S CONDITION, DECREASED LOC, PT WITH LOW BP 81/44 MAP 54, HR 78, O2 SAT 95% WITH 7L OXIDIZER, PT IS RECEIVING NS BOLUS, APPROX 1.5L INFUSED, PT SLEEPING AROUSABLE BY PAINFUL STIMULI BUT FALLS RIGHT BACK TO SLEEP, DR BENÍTEZ ASKED REGARDING TRANSFER TO ICU, DR BENÍTEZ WANTS TO FINISH SECOND LITTER NS, THEN CHECK BP THEN WILL DECIDE IF ICU TRANSFER IS DEEMED NECESSARY. ONCOMING CHARGE NURSE MADE AWARE OF PLAN.
--- NOTE | 2018-07-08 19:35 | NUR ---
ENDORSED PATIENT AT BEDSIDE TO ETCHER ELECTROLYTIC NURSE FOR CONTINUITY OF CARE. IV BOLUS IS INFUSING. SAFETY MEASURES ARE IN PLACE.
[2018-07-08 20:57] VITALS: BP 85/55
[2018-07-08] MEDS ORDERED: LORazepam 2 MG/ML VIAL IVP SCH (21:00)
--- NOTE | 2018-07-08 21:07 | NUR ---
REPORT TO STOCK FEEDER GIVEN. PER MD RESIDENT TO TRANSFER TO ICU RT LOW B/P.
[2018-07-08] MEDS: DIVALPROEX SPRINKLES 125 MG CAPDR PO SCH (21:30)
[2018-07-08] MEDS: SOTALOL 80 MG TAB PO SCH (21:30)
[2018-07-08] MEDS: DABIGATRAN ETEXILATE MESYLAT 75 MG CAP PO SCH (21:30)
--- NOTE | 2018-07-08 21:30 | NUR ---
PT TRANSFERRED FROM TELEMETRY TO ICU. PT IS AAOX2 AT THIS TIME, ABLE TO MAKE NEEDS KNOWN AND FOLLOW COMMANDS. A. FIB ON MONITOR. PT IS ON OXYMIZER AT 7 L/MIN. RHONCHI HEARD BILATERALLY, DIMINISHED LOWER LOBES. BREATHING EVEN AND UNLABORED. SPO2 96%. PERIPHERAL IV G20 TO RIGHT HAND PATENT AND INTACT, RUNNING THE THIRD LITER OF NS BOLUS. ABDOMEN ROUND, SOFT, NONTENDER W/ ACTIVE BOWEL SOUNDS. DIAMOND CATH IN PLACE DRAINING URINE TO GRAVITY. SKIN IS INTACT, DRY AND WARM TO TOUCH. PT DOES NOT HAVE RIGHT MIDDLE FINGER. HOB 30 DEGREES, BED IN LOWEST POSITION, LOCKED. PT IS AFEBRILE. DENIES PAIN. NO SIGNS OF DISTRESS NOTED AT THIS TIME. CALL LIGHT WITHIN REACH. WILL CONTINUE TO MONITOR.
--- NOTE | 2018-07-08 21:33 | NUR ---
PT. IN ICU CARE. TRANSFERRED BY ME AND CHARGE NURSE. PT. NOTED ABLE TO VERBALIZE RESISTANCE WHEN BEING LIFTED FROM TELE BED TO ICU BED. 'what are you doing. no" PT. PLACED ON 02 AT 7LPM PER OXYMIXER AND RESPIRATORY THERAPIST PRESENT.
[2018-07-08 22:00] VITALS: BP 98/53
--- NOTE | 2018-07-08 22:00 | NUR ---
DR. LOCKHART IN TO SEE PT. WILL FOLLOW UP ON ORDERS. Addendum: 07/09/18 at 0052 by Shannan Bautista RN DR. LOCKHART AWARE THAT DEPAKOTE AND PRADEXA WERE NOT GIVEN BECAUSE MEDICATIONS WERE NOT AVAILABLE.
--- NOTE | 2018-07-08 22:10 | NUR ---
PER DR. LOCKHART, CENTRAL LINE NOT NEEDED AT THIS TIME DUE TO STABLE BLOOD PRESSURE 107/70.
[2018-07-08] MEDS ORDERED: cefTRIAXone 1,000 MG VIAL ONE (22:33)
[2018-07-08] MEDS ORDERED: CLINDAMYCIN 600 MG/4 ML VIAL ONE (22:35)
[2018-07-09] VITALS (8 sets, daily range): BP systolic 97–115; BP diastolic 55–77
--- NOTE | 2018-07-09 00:27 | NUR ---
PT RESTING IN BED. BP 97/69 (MAP 80). ON OXYMIZER AT 7 L/MIN, RR 23, O2 SAT 94%. NO S/SX OF DISTRESS NOTED AT THIS TIME. WILL CONTINUE TO MONITOR.
[2018-07-09] MEDS: ALBUTEROL SULFATE/IPRATROPIU 3 ML SOL IH SCH ×4 (01:32→19:18)
[2018-07-09] MEDS: DEXT 5% /NACL 0.9% 1,000 ML IV SCH ×2 (02:42→07:45)
--- NOTE | 2018-07-09 03:00 | NUR ---
NO CHANGE IN CONDITION AT THIS TIME. BP 102/66, O2 94%, RR 16, HR 77. ALL SAFETY PRECAUTIONS IN PLACE. WILL CONTINUE TO MONITOR.
[2018-07-09] MEDS ORDERED: CLINDAMYCIN 600 MG in DEXTROSE 5% 50 ML IV SCH (05:00)
--- NOTE | 2018-07-09 05:08 | NUR ---
CLINICAL DOCUMENTATION CONSULTANT CAME TO DRAW MORNING LABS. PT REFUSED BLOOD DRAW. EXPLAINED PT THE IMPORTANCE OF MONITORING LABS BY CHARGE NURSE AND PRIMARY RN. PT STILL REFUSED. DR. LOCKHART MADE AWARE.
--- NOTE | 2018-07-09 06:20 | NUR ---
PATIENT HAS BEEN SCREENED AND CATEGORIZED LOW NUTRITION RISK. PATIENT WILL BE SEEN WITHIN 7 DAYS OF ADMISSION. 07/15/18 SHAAN SIMPSON MS, RDN
--- NOTE | 2018-07-09 06:45 | NUR ---
DR. WILLIAM IN TO SEE AND EXAMINE PT. UPDATES GIVEN ON PT'S CONDITION. WILL FOLLOW UP ON ORDERS.
--- NOTE | 2018-07-09 07:18 | NUR ---
REPORT GIVEN TO DAY SHIFT RN FOR CONTINUITY OF CARE. PT IS IN STABLE CONDITION.
--- NOTE | 2018-07-09 07:30 | NUR ---
RECEIVED PT FROM PM NURSE. PT AWAKE, ALERT.ABLE TO MAKE NEEDS KNOWN . BEDSIDE MONITOR SHOWS A. FIB . ON OXYMIZER AT 8 L/MIN. RHONCHI NOTED BILATERALLY. BREATHING EVEN AND UNLABORED. SPO2 98%. UNPRODUCTIVE COUGH NOTED.NO SIGNS OF DISTRESS NOTED AT THIS TIME. PERIPHERAL IV G20 TO RIGHT HAND AND LEFT UPPER ARM #22, PATENT AND INTACT, RUNNING D5NS AT 80 CC/HR. ABDOMEN ROUND, SOFT, WITH ACTIVE BOWEL SOUNDS. PT DENIES PAIN . DIAMOND CATH IN PLACE DRAINING URINE TO GRAVITY. SKIN INTACT, DRY AND WARM TO TOUCH. PT DOES NOT HAVE RIGHT MIDDLE FINGER. HOB 30 DEGREES, BED IN LOWEST POSITION, LOCKED. CALL LIGHT WITHIN REACH. INTRODUCED MYSELF AND REORIENTED PT ENVIRONMENT.WILL CONTINUE TO MONITOR.
[2018-07-09] MEDS: HYDROcodone/APAP 7.5/325 MG 1 TAB PO PRN ×2 (08:05→14:23)
[2018-07-09] MEDS: FUROSEMIDE 40 MG TAB PO SCH (08:06)
[2018-07-09] MEDS: GABAPENTIN 300 MG CAP PO SCH ×3 (08:06→17:25)
[2018-07-09] MEDS: MONTELUKAST SODIUM 10 MG TAB PO SCH (08:07)
[2018-07-09] MEDS: SOTALOL 80 MG TAB PO SCH ×2 (08:12→20:45)
[2018-07-09] MEDS: DIVALPROEX SPRINKLES 125 MG CAPDR PO SCH ×2 (10:24→20:36)
[2018-07-09] MEDS: DABIGATRAN ETEXILATE MESYLAT 75 MG CAP PO SCH ×2 (10:28→20:38)
[2018-07-09] MEDS: CLINDAMYCIN PHOS 600MG/D5W PM 50 ML IV SCH ×2 (13:35→20:36)
[2018-07-09 18:17] LABS: T4 (THYROXINE) 3.9 ug/dL (4.5 - 12.0)
--- NOTE | 2018-07-09 19:25 | NUR ---
RECEIVED BEDSIDE REPORT FROM MORNING SHIFT RN, COLETTE. PT IS AWAKE, ABLE TO RESPOND TO COMMANDS. TEMP 98.0, HR 79, BP 99/77, SATING AT 94%. LUNG SOUND COARSE BILATERAL UPPER/LOWER LOBES. ON 8L NASAL OXIMIZER. AFIB ON CADIAC MONITOR. RT MARITZA AT BEDSIDE TO SEE PATIENT. RHAND 20 GUABE PIV, INFUSING D5NS AT 80CC/HR. AND TINY 22 GAUGE PIV. BOWEL SOUND ACTIVE X4, DIAMOND CATH IN PLACE. SKIN IN DRY/WARM/INTACT. STANDARD AND FALL PRECAUTIONS MAINTAINED. ON SCDS BILATERAL LEGS.
--- NOTE | 2018-07-09 20:58 | NUR ---
PT WAS ABLE TO TO TAKE PO MEDS, STATED THAT HE IS CONSTIPATED. DENIES NAUSE AT THIS TIME. PT REQUESTED MEDICATION FOR CONSTIPATION, INFORMED PT THAT COLACE WAS GIVEN 2 HOURS AGO AND TO GIVE IT TIME. PT DOES NOT BELIEVE MEDICATION TO WORK. INFORMED PT TO GIVE MEDICATION TIME TO WORK.
--- NOTE | 2018-07-09 22:30 | NUR ---
FER VANCE, OF [facility] CALLED TO UPDATE ON PT STATUS CONDITION.
--- NOTE | 2018-07-09 23:37 | NUR ---
PT TRANSFERRED TO ICU, REPORT GIVEN TO OUTREACH REPRESENTATIVE RO VANCE. Addendum: 07/09/18 at 2337 by Ania Michaud RN CORRECTION: PT TRANSFERRED TO [facility] AT THIS TIME.
--- NOTE | 2018-07-09 23:40 | NUR ---
Patient arrived in unit from ICU via gurney, accompanied by two MANAGER ADVANCED's. Patient is A/Ox3, bedbound, able to make needs known. Introduced self, updated board. Patient is on O2 at 8LPM via Oxymizer, no SOB or distress noted. Chief complaint of ALOC and SOB for one day while at the SNF. Diagnosis is ALOC, Pneumonitis. IV sites on left upper arm, 20 gauge, saline locked and right hand, 22 gauge, running IVF at 80mL/hr. Vital signs upon transfer into the unit are as follows: BP 108/70, RR 21, HR 82, Temp 98.0 degrees F., O2Sat 98% on 8LPM via Oxymizer. Bed in the lowest position, head of bed above 30 degrees, call light within reach. Initial assessment done. Will continue to monitor.
[2018-07-10] VITALS: BP 108/70
--- NOTE | 2018-07-10 01:20 | NUR ---
Rounds done, no distress noted.
[2018-07-10] MEDS: ALBUTEROL SULFATE/IPRATROPIU 3 ML SOL IH SCH ×4 (01:26→18:56)
[2018-07-10 04:00] VITALS: BP 106/59
--- NOTE | 2018-07-10 04:00 | NUR ---
Vitals taken, no distress noted.
[2018-07-10] MEDS: DEXT 5% /NACL 0.9% 1,000 ML IV SCH ×3 (04:31→19:58)
[2018-07-10] MEDS: CLINDAMYCIN PHOS 600MG/D5W PM 50 ML IV SCH ×3 (04:33→20:57)
--- NOTE | 2018-07-10 05:30 | NUR ---
Frequent checks made. Patient asleep, visible chest rise and fall noted.
[2018-07-10 06:30] LABS: BASOPHILS # (AUTO) 0.1 K/uL (0.00-0.22); BASOPHILS % (AUTO) 0.8 % (0.0-2.0); EOSINOPHILS % (AUTO) 0.4 % (0.0-4.0); HEMATOCRIT 36.2 % (36-52); HEMOGLOBIN 10.1 g/dL (12.0-18.0); LYMPHOCYTES # (AUTO) 1.7 K/uL (2.0-11.5); LYMPHOCYTES % (AUTO) 23.8 % (20.5-51.1); MEAN CORPUSCULAR HEMOGLOBIN 20 pg (27-31); MEAN CORPUSCULAR HGB CONC 28 g/dL (33-37); MEAN CORPUSCULAR VOLUME 71.1 fL (80-94); MONOCYTES # (AUTO) 1.2 K/uL (0.8-1.0); MONOCYTES % (AUTO) 15.9 % (1.7-9.3); NEUTROPHILS # (AUTO) 4.3 K/uL (1.8-7.7); NEUTROPHILS % (AUTO) 59.1 % (42.2-75.2); PLATELET COUNT (AUTO) 159 K/uL (140-450); RED BLOOD CELL COUNT(AUTO) 5.09 MIL/uL (4.20-6.10); RED CELL DISTRIBUTION WIDTH 22.2 % (11.6-13.7); WHITE BLOOD COUNT (AUTO) 7.2 K/uL (4.8-10.8)
[2018-07-10 06:57] LABS: ANION GAP 8.6 (8-16); CARBON DIOXIDE 31.4 mmol/L (21-32); CHLORIDE 110 mmol/L (98-107); GLUCOSE 114 mg/dL (74-106); SODIUM SERUM 146 mmol/L (136-145); UREA NITROGEN, BLOOD 15 mg/dL (7-18)
--- NOTE | 2018-07-10 07:29 | NUR ---
Endorsed patient to AM shift nurse for continuity of care; patient in stable condition.
--- NOTE | 2018-07-10 07:30 | NUR ---
RECEIVED REPORT FROM PM NURSE AT BEDSIDE, PT IS ON O2 SUPPLY VIA OXYMIZER AT 6LPM. IS TOTAL CARE, FALL RISK. ON ASPIRATION PRECAUTION DUE TO DYSPHAGIA. PT HAS RT WRIST 22 G IV ACCESS, AND LFT UA 20 G IV ACCESS SITE. UPDATED BOARD AND INTRODUCED SELF. NO SIGN OF DISTRESSES NOTED. CALL LIGHT WITHIN PT REACH.INFORMED PT TO USE CALL LIGHT FOR ANY HELP.ALL SAFETY MEASURE IN PLACE. WILL CONTINUE TO MONITOR PT.
[2018-07-10 08:00] VITALS: BP 105/67
[2018-07-10] MEDS: MONTELUKAST SODIUM 10 MG TAB PO SCH (09:11)
[2018-07-10] MEDS: GABAPENTIN 300 MG CAP PO SCH ×3 (09:11→17:12)
[2018-07-10] MEDS: SOTALOL 80 MG TAB PO SCH ×2 (09:11→21:10)
[2018-07-10] MEDS: DIVALPROEX SPRINKLES 125 MG CAPDR PO SCH ×2 (09:11→21:10)
[2018-07-10] MEDS: FUROSEMIDE 40 MG TAB PO SCH (09:12)
[2018-07-10] MEDS: DABIGATRAN ETEXILATE MESYLAT 75 MG CAP PO SCH ×2 (09:23→21:08)
--- NOTE | 2018-07-10 09:30 | NUR ---
ADMINISTERED MEDS TO PT ORDERED. CRUSHED PILLS AND MIXED WITH APPLE SAUCE. TOLERATED WELL. REPOSITIONED PT WITH HELP OF SCHOOL BUSINESS MANAGER. ALL SAFETY MEASURE IN PLACE. WILL CONTINUE TO MONITOR PT.
[2018-07-10] MEDS: HYDROcodone/APAP 7.5/325 MG 1 TAB PO PRN (10:10)
--- NOTE | 2018-07-10 10:15 | NUR ---
PT ASKING FOR PAIN MEDS. ADMINISTERED NORCO FOR HIS PAIN. WILL REASSESS [PAIN IN HOUR.
--- NOTE | 2018-07-10 11:25 | NUR ---
CHECKED ON PT.HAVING COUGHING. PT ASKING TO BE ON HIS BACK, STATES HELPS TO EXPECTORATE COUGH BETTER . HELPED HIM TO REPOSITION ON HIS BACK. PT STABLE AT THIS TIME.
[2018-07-10] MEDS ORDERED: guaiFENesin 600 MG TABER PO SCH ×2 (11:30→21:00)
[2018-07-10 12:00] VITALS: BP 91/56
[2018-07-10] MEDS: guaiFENesin DM 200/20 MG-10 ML 10 ML UDC PO PRN (12:10)
[2018-07-10] MEDS ORDERED: INSULIN LISPRO SLIDING SCALE 100 UNITS/ML VIAL SUBQ PRN (12:15)
[2018-07-10] MEDS ORDERED: DEXTROSE 50% 50 ML SYR IVP PRN (12:15)
[2018-07-10] MEDS ORDERED: FUROSEMIDE 20 MG/2 ML VIAL IVP SCH (12:30)
--- NOTE | 2018-07-10 12:30 | NUR ---
WITH HELD LASIX IB PUSH AT THIS TIME. BP 91/56. WILL REASSESS YOBANY LATER AND WILL ADMINISTER LASIX .
--- NOTE | 2018-07-10 12:42 | NUR ---
CHECKED ON PT . COUGHING AT LOT. PT ADMINISTERED WITH COUGH MEDICATION. NO SIGN OF DISTRESS NOTED. WILL CONTINUE TO MONITOR PT.
[2018-07-10 16:00] VITALS: BP 102/63
[2018-07-10] MEDS: ACETAMINOPHEN 325 MG TAB PO PRN (16:07)
--- NOTE | 2018-07-10 16:11 | NUR ---
ADMINISTERED MEDS TYLENOL FOR HIS MILD PAIN. PT ASKING FOR TWO TABLETS TYLENOL. TOLERATED HIS MEDS WELL. LAB CALLED AND STATES THAT HIS SPUTUM HAS BEEN REJECTED. AWARE. WILL TALK TO RT , ASKING TO LOWER DOWN THE O2 SUPPLY FROM, OXYMIZER TO NC. WILL CONTINUE TO MONITOR PT.
--- NOTE | 2018-07-10 16:25 | NUR ---
changed pt from 7L oximizer to 4L nasal canula as per dr. reyes. pts 02 sat 91%. Dr. Reyes wants 02 sats >90%
[2018-07-10] MEDS: BLOOD GLUCOSE MONITORING 1 DEV DEV FS SCH ×2 (17:18→21:03)
--- NOTE | 2018-07-10 19:10 | NUR ---
ENDORSED PT TO PM NURSE AT BEDSIDE. PT IN STABLE CONDITION.
--- NOTE | 2018-07-10 19:30 | NUR ---
Received endorsement from AM shift RN; patient is A/Ox3, able to make needs known, bedbound. Introduced self, updated board. Patient is receiving O2 4LPM via nasal cannula, no SOB or distress noted. IV sites on right hand, 22 gauge, intact, running IVF at 80mL/hr. and left upper arm, 20 gauge, saline locked. Skin intact. Bed in the lowest position, call light within reach. Initial assessment done. Will continue to monitor.
[2018-07-10 20:00] VITALS: BP 98/55
--- NOTE | 2018-07-10 20:15 | NUR ---
Vitals taken, no distress noted.
--- NOTE | 2018-07-10 20:40 | NUR ---
Due meds given, tolerated well.
[2018-07-10] MEDS: CALCIUM CARB/VIT-D 500 MG/200 IU 1 TAB PO SCH (21:10)
[2018-07-10] MEDS: FUROSEMIDE 20 MG/2 ML VIAL IVP SCH (21:11)
--- NOTE | 2018-07-10 23:55 | NUR ---
Vitals taken, no distress noted. Patient is watching TV.
[2018-07-11] VITALS: BP 108/65
[2018-07-11] MEDS: ALBUTEROL SULFATE/IPRATROPIU 3 ML SOL IH SCH ×4 (00:52→19:18)
[2018-07-11] MEDS: guaiFENesin DM 200/20 MG-10 ML 10 ML UDC PO PRN ×2 (01:03→14:20)
--- NOTE | 2018-07-11 01:12 | NUR ---
Administered PRN cough medicine due to cough. Will continue to monitor.
[2018-07-11 04:00] VITALS: BP 122/77
--- NOTE | 2018-07-11 04:02 | NUR ---
Vitals taken, patient is resting, no distress noted.
[2018-07-11] MEDS: CLINDAMYCIN PHOS 600MG/D5W PM 50 ML IV SCH ×3 (04:13→21:15)
[2018-07-11] MEDS: BLOOD GLUCOSE MONITORING 1 DEV DEV FS SCH ×4 (06:40→21:41)
--- NOTE | 2018-07-11 07:15 | NUR ---
PT UNABLE TO PRODUCE SPUTUM AT THIS TIME
--- NOTE | 2018-07-11 07:16 | NUR ---
Endorsed patient to AM shift RN for continuity of care; patient in stable condition.
--- NOTE | 2018-07-11 07:17 | NUR ---
RECEIVED REPORT FROM PM NURSE AT THE BEDSIDE. PT LYING ON HIS BED. ON O2 4LPM VIA NC, O2 SAT 97%, TOLERATING WELL. PT RECEIVED HIS BREATHING TREATMENT. IV SITE ON HIS RT WRIST, IVF INFUSING WELL. NO SIGN OF DISTRESS NOTED. BED ALARM ON. CALL LIGHT WITHIN PT REACH. INFORMED PT TO USE CALL LIGHT FOR ANY HELP. PT STATES NEEDS TO BE CLEANED UP, CARD SELLER NOTIFIED.WILL CONTINUE TO MONITOR PT.
[2018-07-11 07:40] LABS: CARBON DIOXIDE 32.1 mmol/L (21-32); CHLORIDE 108 mmol/L (98-107); GLUCOSE 113 mg/dL (74-106); POTASSIUM 4.1 mmol/L (3.5-5.1); SODIUM SERUM 144 mmol/L (136-145); UREA NITROGEN, BLOOD 12 mg/dL (7-18)
[2018-07-11 07:56] VITALS: BP 129/73
[2018-07-11 08:40] LABS: BASOPHILS % (AUTO) 0.2 % (0.0-2.0); EOSINOPHILS # (AUTO) 0.1 K/uL (0-0.4); EOSINOPHILS % (AUTO) 1.4 % (0.0-4.0); HEMATOCRIT 37.1 % (36-52); HEMOGLOBIN 10.4 g/dL (12.0-18.0); LYMPHOCYTES # (AUTO) 1.9 K/uL (2.0-11.5); LYMPHOCYTES % (AUTO) 26.7 % (20.5-51.1); MEAN CORPUSCULAR HEMOGLOBIN 20 pg (27-31); MEAN CORPUSCULAR HGB CONC 28 g/dL (33-37); MEAN CORPUSCULAR VOLUME 70.5 fL (80-94); MONOCYTES # (AUTO) 1.1 K/uL (0.8-1.0); MONOCYTES % (AUTO) 15.9 % (1.7-9.3); NEUTROPHILS # (AUTO) 3.9 K/uL (1.8-7.7); NEUTROPHILS % (AUTO) 55.8 % (42.2-75.2); PLATELET COUNT (AUTO) 180 K/uL (140-450); RED BLOOD CELL COUNT(AUTO) 5.27 MIL/uL (4.20-6.10); RED CELL DISTRIBUTION WIDTH 22.1 % (11.6-13.7)
[2018-07-11] MEDS: DABIGATRAN ETEXILATE MESYLAT 75 MG CAP PO SCH ×2 (08:55→21:17)
[2018-07-11] MEDS: DIVALPROEX SPRINKLES 125 MG CAPDR PO SCH ×2 (08:56→21:15)
[2018-07-11] MEDS: GABAPENTIN 300 MG CAP PO SCH ×3 (08:56→16:53)
[2018-07-11] MEDS: FUROSEMIDE 20 MG/2 ML VIAL IVP SCH ×2 (08:56→21:16)
[2018-07-11] MEDS: CALCIUM CARB/VIT-D 500 MG/200 IU 1 TAB PO SCH ×2 (08:56→21:15)
[2018-07-11] MEDS: MONTELUKAST SODIUM 10 MG TAB PO SCH (08:57)
[2018-07-11] MEDS: SOTALOL 80 MG TAB PO SCH ×2 (08:57→21:16)
--- NOTE | 2018-07-11 09:15 | NUR ---
ADMINISTERED MEDS TO PT ORDERED. TOLERATED WELL. PROVIDED WARM BLANKET. PT ASKING FOR SOYA MILK. CALL FNS AND LEFT THE MESSAGE. PT LYING ON HIS BED COMFORTABLY. NO SIGN OF DISTRESS NOTED. WILL CONTINUE TO MONITOR PT.
--- NOTE | 2018-07-11 09:53 | NUR ---
DUE TO KEYLA SCALE CHANGE FROM 14 TO 12, PT. HAS BEEN RE-SCREENED AND CATEGORIZED HIGH RISK. PT. WILL BE SEEN 07/11/18. FLEX GARCIA RD
[2018-07-11 12:00] VITALS: BP 132/75
--- NOTE | 2018-07-11 13:59 | NUR ---
CM NOTE FAXED CLINICAL PACKET TO [facility]. NO DISCHARGE ORDER AT THIS TIME. PATIENT HAS SECONDARY IEHP. PER IEHP SPIKE CHEN, FOR [facility] GOING BACK TO [facility] AUTH# [id number].
--- NOTE | 2018-07-11 14:24 | NUR ---
ADMINISTERED COUGH MEDS TO PT. TOLERATED WELL. NO DISTRESS NOTED. WILL CONTINUE TO MONITOR PT.
--- NOTE | 2018-07-11 15:08 | NUR ---
07/11/18 RD INITIAL ASSESSMENT COMPLETED PLEASE REFER TO NUTRITION ASSESSMENT UNDER CARE ACTIVITY FOR ESTIMATED NUTRITIONAL NEEDS. 1. CONTINUE PUREE CCHO 60 GM DIET TOLERATED 2. IF PATIENT�S PO INTAKE IMPROVES OVER 75%, RECOMMEND 70 GM PROTEIN AND CCHO [address] TO FOLLOW-UP 2-3 DAYS, HIGH RISK FRANKY CHOWDARY RD
[2018-07-11 16:00] VITALS: BP 123/98
[2018-07-11] MEDS: DEXT 5% /NACL 0.9% 1,000 ML IV SCH (16:54)
[2018-07-11] MEDS ORDERED: BISACODYL 10 MG SUPP RC SCH (17:00)
--- NOTE | 2018-07-11 17:00 | NUR ---
CHECKED ON THE PT. RECORDED HIS VS. BS 1O3. ASKING FOR SUPPOSITORY, INSERTED SUPPOSITORY IN THE PT. HELPED TO REPOSITIONED THE PT WITH HELP OF FISHER POT. PT AGITATED , TRYING TO GET OFF FROM THE BED. REORIENTED PT THAT HE IS IN HOSPITAL. PT STATES BEING OKAY AND COMFORTABLE . WILL CONTINUE TO MONITOR PT.
--- NOTE | 2018-07-11 18:30 | NUR ---
PT VERY CONFUSED. GETTING OUT THE BED. STATES WANT TO SLEEP ON THE FLOOR. REPOSITIONED PT ON WITH HELP OF SURVEILLANCE INVESTIGATOR. PT REORIENTED THAT HE IS IN THE HOSPITAL. ADMINISTERED NORCO FOR THE PAIN. WILL CONTINUE TO MONITOR PT.
[2018-07-11] MEDS: HYDROcodone/APAP 7.5/325 MG 1 TAB PO PRN (18:45)
--- NOTE | 2018-07-11 19:22 | NUR ---
ENDORSED PT TO PM NURSE AT BEDSIDE. PT VERY CONFUSED. MD AWARE, SAW THE PT AT THE BEDSIDE. STATES WILL PUT THE ORDERS . PT VS NORMAL. BP 124/83, O2 SAT 92 ON O2 4LPM, HR 93. PM NURSE MADE AWARE OF THE PT BEING CONFUSED.
--- NOTE | 2018-07-11 19:23 | NUR ---
REPORT RECEIVED FROM AM NURSE AT BEDSIDE. PT IN STABLE CONDITION. AAOX1. INTRODUCED SELF TO PT. BOARD UPDATED. NO COMPLAINTS OF PAIN. NO SOB ON 4L HUMIDIFIED NC. AFEBRILE. IV SITE R HAND 22G RUNNING D5NS@80ML/HR PATENT AND INTACT. ALSO L UA 20G SL PATENT AND INTACT. SKIN WARM, DRY, AND INTACT WITH NO OPEN WOUNDS. BED LOCKED IN LOW POSITION. CALL RUBIO WITHIN REACH. SAFETY PRECAUTIONS IN PLACE. ALL NEEDS MET AT THIS TIME. Addendum: 07/12/18 at 0130 by Maldonaod Kinsey RN DRAA IN PLACE.
[2018-07-11 20:00] VITALS: BP 130/89
--- NOTE | 2018-07-11 21:08 | NUR ---
RACHAEL LUCIANO AND RUNNING. PT TOLERATING WELL.
--- NOTE | 2018-07-11 21:15 | NUR ---
BETAPACE, DEPAKOTE, OSCAL, AND PRADAXA GIVEN WITH APPLESAUCE. CLINDAMYCIN HUNG AND RUNNING. LASIX GIVEN IVP. PT TOLERATED WELL. BS 112. NO INSULIN COVERAGE NEEDED.
--- NOTE | 2018-07-11 22:00 | NUR ---
PT PULLED OUT R HAND IV. CANNULA INTACT. ATTEMPTING TO PULL OUT DIAMOND.
--- NOTE | 2018-07-11 23:15 | NUR ---
PT VS STABLE. PT IN BED TALKING GIBBERISH. UNABLE TO UNDERSTAND. NO S/S OF DISTRESS NOTED. WILL CONTINUE TO MONITOR.
[2018-07-12] VITALS: BP 145/79
[2018-07-12] MEDS: ALBUTEROL SULFATE/IPRATROPIU 3 ML SOL IH SCH ×3 (00:44→14:09)
--- NOTE | 2018-07-12 00:45 | NUR ---
NOTICED PT DIAMOND DRAINING TIN PINK URINE. SAW PT ATTEMPTING TO PULL OUT DIAMOND AT TIMES THROUGHOUT THE NIGHT. NOTIFIED OF THE TIN PINK URINE OUTPUT. NEW ORDERS TO HOLD BLOOD THINNERS FOR NOW.
--- NOTE | 2018-07-12 02:40 | NUR ---
PT SLEEPING IN BED WITH HEAD AND NECK IN A WEIRD ANGLE. NO S/S OF DISTRESS NOTED. NO COMPLAINTS OF PAIN. NO SOB. AFEBRILE. WILL CONTINUE TO MONITOR.
[2018-07-12 04:00] VITALS: BP 95/64
[2018-07-12] MEDS: CLINDAMYCIN PHOS 600MG/D5W PM 50 ML IV SCH ×2 (04:05→12:13)
--- NOTE | 2018-07-12 04:05 | NUR ---
CLINDAMYCIN HUNG AND RUNNING. PT TOLERATING WELL.
--- NOTE | 2018-07-12 05:00 | NUR ---
PT SLEEPING COMFORTABLY IN BED. NO S/S OF DISTRESS NOTED. WILL CONTINUE TO MONITOR.
[2018-07-12] MEDS: BLOOD GLUCOSE MONITORING 1 DEV DEV FS SCH ×2 (05:43→11:30)
--- NOTE | 2018-07-12 05:43 | NUR ---
BS 131. NO INSULIN COVERAGE NEEDED.
[2018-07-12] MEDS: DEXT 5% /NACL 0.9% 1,000 ML IV SCH (06:24)
--- NOTE | 2018-07-12 07:30 | NUR ---
REPORT GIVEN TO AM NURSE AT BEDSIDE. PT IN STABLE CONDITION.
--- NOTE | 2018-07-12 07:35 | NUR ---
RECEIVED HAND OFF REPORT FROM LOWER IN SUPERVISOR NURSE. PT IS AWAKE IN BED PT APPEARS STABLE AND IN NO APPARENT DISTRESS. WILL CONTINUE TO MONITOR.
--- NOTE | 2018-07-12 07:44 | NUR ---
SATURATION 95%ON SUPPLEMENTAL OXYGENT AT 4 LPM VIA NC POST HHN THERAPY TITRATED FIO2 TO 3 LPM PUBLIC STENOGRAPHER TO NOTIFY RN
--- NOTE | 2018-07-12 07:55 | NUR ---
PT REQUESTING TO BE REPOSITIONED. RT AT PT BEDSIDE GIVING PT BREATHING TREATMENT. DRS AT BEDSIDE FOR MORNING ROUNDS. WILL CONTINUE TO MONITOR PT
[2018-07-12 08:00] VITALS: BP 81/52
--- NOTE | 2018-07-12 08:48 | NUR ---
Interior Design Instructor Note: I informed Ritu from Admitting Dept that patient is self responsible with medical decisions and his power of deputy prosecuting attorney health care agent Mg Borja is involved with his care. I told Ritu Holliday is able to sign patient's admission forms in case patient cannot.
--- NOTE | 2018-07-12 09:30 | NUR ---
PT REPORTED PAIN. 10/04 GAVE PT PAIN MEDICATION PER ORDERS. CLEANSED PT AND CHANGED LINEN AND CHUCKS. REPOSITIONED PT AND ADMINISTERED ALL MORNING MEDICATIONS. PT TOLERATED ALL MORNING MEDICATIONS CRUSHED AND IN APPLE SAUCE. PT WAS REFUSING HIS BREAKFAST. PT HAD SMALL BOWEL MOVEMENT.
[2018-07-12] MEDS: HYDROcodone/APAP 7.5/325 MG 1 TAB PO PRN (09:37)
[2018-07-12] MEDS: SOTALOL 80 MG TAB PO SCH (09:37)
[2018-07-12] MEDS: DIVALPROEX SPRINKLES 125 MG CAPDR PO SCH (09:38)
[2018-07-12] MEDS: CALCIUM CARB/VIT-D 500 MG/200 IU 1 TAB PO SCH (09:38)
[2018-07-12] MEDS: GABAPENTIN 300 MG CAP PO SCH ×2 (09:38→12:13)
[2018-07-12] MEDS: MONTELUKAST SODIUM 10 MG TAB PO SCH (09:38)
[2018-07-12] MEDS: FUROSEMIDE 20 MG/2 ML VIAL IVP SCH (09:39)
[2018-07-12] MEDS: DABIGATRAN ETEXILATE MESYLAT 75 MG CAP PO SCH (09:52)
[2018-07-12 10:10] LABS: ANION GAP 9.1 (8-16); CARBON DIOXIDE 33.6 mmol/L (21-32); CHLORIDE 106 mmol/L (98-107); CREATININE 1.3 mg/dL (0.7-1.3); GLUCOSE 124 mg/dL (74-106); POTASSIUM 4.7 mmol/L (3.5-5.1); SODIUM SERUM 144 mmol/L (136-145); UREA NITROGEN, BLOOD 16 mg/dL (7-18)
--- NOTE | 2018-07-12 10:30 | NUR ---
SPOKE WITH RACHNA RN, WOUND CARE NURSE ABOUT PT RIGHT HAND THAT HAS DISCOLORATION AND PT REPORTS PAIN FROM IT. RACHNA SAID TO KEEP MONITORING IT FOR NOW. PHOTOS AND NO OTHER INTERVENTIONS ARE NEEDED AT THIS TIME FOR DISCOLORATION OF THE HAND.
--- NOTE | 2018-07-12 10:41 | NUR ---
CM NOTE RECEIVED ORDER TO DC TO [facility] TODAY. FAXED ORDER AND UPDATED CLINICAL PACKET TO [facility]. PER FER OF [facility], THE PATIENT CAN GO TO [address] CARMONA TODAY, NUMBER TO CALL FOR REPORT PH# [phone]. LUCIANA VANCE AWARE.
--- NOTE | 2018-07-12 10:45 | NUR ---
Transportation arranged with [facility] pt to be picked up from room 116 A at 1600 and transported to [address] [id number] . Informed Vishnu VANCE for the time of garbage pick up man.
[2018-07-12 11:26] LABS: BASOPHILS % (AUTO) 0.3 % (0.0-2.0); EOSINOPHILS # (AUTO) 0.1 K/uL (0-0.4); EOSINOPHILS % (AUTO) 0.6 % (0.0-4.0); HEMATOCRIT 37.5 % (36-52); HEMOGLOBIN 10.7 g/dL (12.0-18.0); LYMPHOCYTES # (AUTO) 2.3 K/uL (2.0-11.5); LYMPHOCYTES % (AUTO) 21.8 % (20.5-51.1); MEAN CORPUSCULAR HEMOGLOBIN 20 pg (27-31); MEAN CORPUSCULAR HGB CONC 28 g/dL (33-37); MEAN CORPUSCULAR VOLUME 70.4 fL (80-94); MONOCYTES # (AUTO) 1.7 K/uL (0.8-1.0); MONOCYTES % (AUTO) 16.5 % (1.7-9.3); NEUTROPHILS # (AUTO) 6.3 K/uL (1.8-7.7); NEUTROPHILS % (AUTO) 60.8 % (42.2-75.2); PLATELET COUNT (AUTO) 268 K/uL (140-450); RED BLOOD CELL COUNT(AUTO) 5.32 MIL/uL (4.20-6.10); WHITE BLOOD COUNT (AUTO) 10.3 K/uL (4.8-10.8)
--- NOTE | 2018-07-12 11:30 | NUR ---
FINGERSTICK GLUCOSE CHECK 117. NO INSULIN COVERAGE NEEDED.
--- NOTE | 2018-07-12 11:33 | NUR ---
PER PRIMARY RN REQUEST AND WITH PT'S PERMISSION TO ASSESS RIGHT HAND. RIGHT INDEX FINGER HX. PARTIALLY AMPUTATION. FROM 2ND DIGIT TO 4TH DIGIT NOTICE OF PARTIALLY BLACK DISCOLORATION, PT. [place] OF PAIN, SKIN INTACT ABLE TO FLEX AND EXTEND ALL FINGERS WITHOUT DIFFICULTY. POC DISCUSSED WITH PT. AND PRIMARY RN TO TAKE PHOTO AND INFORM PCP, NO WOUND CARE TREATMENT RECOMMENDATION AT THIS TIME.
[2018-07-12 12:00] VITALS: BP 114/92
--- NOTE | 2018-07-12 12:00 | NUR ---
SPOKE WITH PCP ABOUT BLACKENED DISCOLORATION OF THE RIGHT HAND. DR SAID HE IS AWARE OF THE DISCOLORATION AND JUST WANTS IT TO BE CLOSELY MONITORED FOR NOW.
[2018-07-12] MEDS ORDERED: DABI150C PO (14:05)
[2018-07-12] MEDS ORDERED: CLIN300C2 IV (14:06)
--- NOTE | 2018-07-12 14:09 | NUR ---
SATURATION 88% ON SUPPLEMENTAL OXYGEN AT 3 LPM VIA NC POST HHN THERAPY INCREASED FIO2 TO 4 LPM
--- NOTE | 2018-07-12 14:54 | NUR ---
CALLED [facility] AND GAVE REPORT TO BERTHA VANCE.
--- NOTE | 2018-07-12 15:00 | NUR ---
REMOVED DIAMOND CATH. PT HAD NO COMPLAINTS OF PAIN. REMOVED IV CATH IN LEFT UPPER ARM IV CATH TIP IN PLACE. PLACED NEW IV 22G IN THE LEFT HAND.
--- NOTE | 2018-07-12 15:30 | NUR ---
PHOTO OF RIGHT HAND TAKEN, AND FILLED OUT WOUND ASSESSMENT AND PLACED IN PT CHART. PT IS STABLE AND ASLEEP WITH NOTABLE CHEST RISE AND FALL. PT APPEARS IN NO APPARENT DISTRESS, WILL CONTINUE TO MONITOR.
[2018-07-12 15:55] VITALS: BP 114/92
--- NOTE | 2018-07-12 16:30 | NUR ---
PT WAS PICKED UP BY . PT WAS TRANSFERRED VIA 3 PERSON ASSIST ON [facility]. PT IS GOING TO [facility] FOR CONTINUITY OF CARE. PT WAS STABLE AND IN NO APPARENT DISTRESS.
== END 2018-07-12 16:35 | DRG 871 ==
LOC: MED 11:04 → MTU 14:46 → MIC 21:30 → MTU 07-09 23:20
PROVIDERS: ADMIT General Practice; ATTEND General Practice
DX: A41.9 Sepsis, unspecified organism (principal); J69.0 Pneumonitis due to inhalation of food and vomit; J96.21 Acute and chronic respiratory failure with hypoxia; G93.41 Metabolic encephalopathy; R65.21 Severe sepsis with septic shock; E44.1 Mild protein-calorie malnutrition; E87.2 Acidosis; I13.0 Hypertensive heart and chronic kidney disease with heart failure and stage 1 through stage 4 chronic kidney disease, or unspecified chronic kidney disease; I42.9 Cardiomyopathy, unspecified; N39.0 Urinary tract infection, site not specified; E11.22 Type 2 diabetes mellitus with diabetic chronic kidney disease; E11.40 Type 2 diabetes mellitus with diabetic neuropathy, unspecified; E11.65 Type 2 diabetes mellitus with hyperglycemia; E83.51 Hypocalcemia; I48.0 Paroxysmal atrial fibrillation; I48.2 Chronic atrial fibrillation; I50.9 Heart failure, unspecified; G31.89 Other specified degenerative diseases of nervous system; J44.9 Chronic obstructive pulmonary disease, unspecified; R13.10 Dysphagia, unspecified; G40.909 Epilepsy, unspecified, not intractable, without status epilepticus; E03.9 Hypothyroidism, unspecified; M19.90 Unspecified osteoarthritis, unspecified site; E78.5 Hyperlipidemia, unspecified; I25.10 Atherosclerotic heart disease of native coronary artery without angina pectoris; N18.9 Chronic kidney disease, unspecified; Z87.891 Personal history of nicotine dependence; Z88.6 Allergy status to analgesic agent; Z68.37 Body mass index [BMI] 37.0-37.9, adult; Z88.0 Allergy status to penicillin; Z88.2 Allergy status to sulfonamides; Z88.8 Allergy status to other drugs, medicaments and biological substances; T83.028A Displacement of other urinary catheter, initial encounter; R31.9 Hematuria, unspecified
CPT/HCPCS: 36415; 36600; 51702; 71045; 80048; 80053; 80305; 81001; 82009; 82140; 82150; 82803; 82948; 83036; 83605; 83690; 83735; 83880; 84100; 84436; 84439; 84443; 84479; 84484; 84550; 85025; 85379; 85610; 87040; 87070; 87081; 87086; 87205; 87804; 93005; 93925; 93970; 94640; 96365; 99285; J0696; J1642; J1815; J1940; J3490; J7030; J7042; J7060; J7620; Q0092

== ENCOUNTER 2018-07-13 00:15 | Inpatient (IN) | payer OTHER ==
[~2018-07-13] VITALS: Ht 167.6 cm; Wt 122.5 kg
[2018-07-13] VITALS (7 sets, daily range): BP systolic 82–153; BP diastolic 53–115
[~2018-07-13 00:15] MED LIST changes: +CLIN300C2 IV
--- NOTE | 2018-07-13 00:15 | NUR ---
PATIENT BIB EMS TO ER BED 10.
--- NOTE | 2018-07-13 00:25 | NUR ---
PT C/O SOB FROM [facility], PT WAS RECENTLY DISCHARGED FROM [facility]. PT WAS FOUND ON 02 SAT 76% ON RA, O2 SAT 95% ON NRM, WAS GIVEN BREATHING TX X1. COARSE BREATH SOUNDS BILATERALLY. PATIENT ABLE TO FOLLOW COMMANDS AND ANSWER QUESTIONS. ERMD AT BEDSIDE. PMH---HTN, AFIB, COPD, RENAL DZ, DM, DYSPHAGIA, OSTEOARTHRITIS, CAD, HYPOTHYROIDISM, CKD, BIPOLAR, GERD
[2018-07-13] MEDS ORDERED: ALBUTEROL SULFATE/IPRATROPIU 3 ML SOL IH ONE (00:35)
[2018-07-13] MEDS ORDERED: ONDANSETRON 4 MG/2 ML VIAL IM/IVP PRN (02:45)
[2018-07-13] MEDS ORDERED: ACETAMINOPHEN 325 MG TAB PO PRN (02:45)
[2018-07-13] MEDS ORDERED: DOCUSATE SODIUM 100 MG GELCAP PO PRN (02:45)
[2018-07-13] MEDS ORDERED: HYDROcodone/APAP 7.5/325 MG 1 TAB PO PRN (02:45)
[2018-07-13] MEDS ORDERED: MORPHINE SULFATE 2 MG/ML SYR IVP PRN (02:45)
--- NOTE | 2018-07-13 03:00 | NUR ---
RECEIVED PT FROM ER, PT AWAKE, ALERT X 2, BEDREST, PT MUMBLING WORDS, BUT ABLE TO MOUTH SOME WORDS COHERENTLY. PT W/ IV ON THE LEFT HAND G 22 . NO IVF AT THIS TIME NOTED. WILL START LATER ORDERED AT THE RATE OF 60ML/HR. PT ON O2 MASK AT GREATER THAN 5L/MIN, PT TOLERATING WELL AT 02 OF 96%. POC DISCUSSED W/ PT. PLACED ON LOW BED POSITION. WILL CONTINUE TO MONITOR
--- NOTE | 2018-07-13 03:23 | NUR ---
Patient will be admitted to care of DR RENEE. Admited to TELE FLOOR ROOM 107-A. Belongings list completed. Report given to RN DOUGLAS. Patient stable during gurney transfer.
[2018-07-13 03:24] LABS: ANION GAP 8.6 (8-16); CHLORIDE 106 mmol/L (98-107); CREATININE 1.7 mg/dL (0.7-1.3); GLUCOSE 99 mg/dL (74-106); POTASSIUM 4.6 mmol/L (3.5-5.1); SODIUM SERUM 142 mmol/L (136-145); UREA NITROGEN, BLOOD 25 mg/dL (7-18)
[2018-07-13] MEDS ORDERED: INSULIN LISPRO SLIDING SCALE 100 UNITS/ML VIAL SUBQ PRN (03:25)
[2018-07-13] MEDS ORDERED: DEXTROSE 50% 50 ML SYR IVP PRN (03:25)
[2018-07-13 03:30] LABS: ASPARTATE AMINOTRANSFERASE 19 U/L (15-37); LIPASE 55 U/L (73-393); TOTAL BILIRUBIN 0.5 mg/dL (0.0-1.0)
[2018-07-13 03:31] LABS: PROTHROMBIN TIME 17.2 secs (10.8-13.4)
[2018-07-13 03:40] LABS: CHOL/HDL RATIO 3.3 (1-4.5); FREE T4 (FREE THYROXINE) 1.06 ng/dL (0.76-1.46); MAGNESIUM 2.1 mg/dL (1.8-2.4); PHOSPHORUS 3.3 mg/dL (2.5-4.9); THYROID STIMULATING HORMONE 2.12 uIU/mL (0.34-3.74)
[2018-07-13] MEDS ORDERED: NACL 0.9% 500 ML IV ONE (03:45)
[2018-07-13 04:04] LABS: EOSINOPHILS # (AUTO) 0.1 K/uL (0-0.4); MONOCYTES # (AUTO) 1.8 K/uL (0.8-1.0); RED CELL DISTRIBUTION WIDTH 22.5 % (11.6-13.7)
[2018-07-13 04:09] LABS: BASOPHILS % (AUTO) 0.2 % (0.0-2.0); EOSINOPHILS % (AUTO) 0.5 % (0.0-4.0); HEMATOCRIT 37.6 % (36-52); HEMOGLOBIN 10.5 g/dL (12.0-18.0); LYMPHOCYTES # (AUTO) 2.2 K/uL (2.0-11.5); LYMPHOCYTES % (AUTO) 18.5 % (20.5-51.1); MEAN CORPUSCULAR HEMOGLOBIN 20 pg (27-31); MEAN CORPUSCULAR HGB CONC 28 g/dL (33-37); MEAN CORPUSCULAR VOLUME 69.8 fL (80-94); MONOCYTES % (AUTO) 14.7 % (1.7-9.3); NEUTROPHILS % (AUTO) 66.1 % (42.2-75.2); PLATELET COUNT (AUTO) 248 K/uL (140-450); RED BLOOD CELL COUNT(AUTO) 5.39 MIL/uL (4.20-6.10); WHITE BLOOD COUNT (AUTO) 12.1 K/uL (4.8-10.8)
[2018-07-13] MEDS: NACL 0.9% 1,000 ML IV SCH ×2 (04:31→20:19)
[2018-07-13] MEDS ORDERED: CLINDAMYCIN 600 MG/4 ML VIAL ONE (04:36)
[2018-07-13] MEDS ORDERED: cefTRIAXone 1,000 MG VIAL ONE (04:37)
[2018-07-13] MEDS ORDERED: CLINDAMYCIN 600 MG in DEXTROSE 5% 50 ML IV SCH (05:00)
[2018-07-13] MEDS ORDERED: CLINDAMYCIN 900 MG in DEXTROSE 5% 100 ML IV SCH (05:00)
--- NOTE | 2018-07-13 05:00 | NUR ---
CHECKED PT WOUND ASSESSMENT, SKIN INTACT EXCEPT FOR SCAR ON UPPER BACK, AND DISCOLORATION ON BILATE LE, AND DISCOLORATION ON RIGHT ARM. PT CLEANED AND CHANGED TO YELLOW GOWN. FALL RISK PRECAUTION IN PLACE, BED ALARM ON
--- NOTE | 2018-07-13 06:12 | NUR ---
PT MUMBLING NOISILY TO HIMSELF, INFORMED PT TO BE CONSIDERATE OF HIS NEIGHBOR BED B. INFORMED CHARGE NURSE PT REFUSED TO BEING QUIET, PT HAS 02 SAT OF 96% VIA 02 MASK.
[2018-07-13] MEDS: PANTOPRAZOLE 40 MG INJ VIAL IVP SCH (06:18)
[2018-07-13] MEDS: LEVOTHYROXINE 0.025 MG TAB PO SCH (06:19)
[2018-07-13] MEDS: BLOOD GLUCOSE MONITORING 1 DEV DEV FS SCH ×4 (07:22→21:25)
--- NOTE | 2018-07-13 07:22 | NUR ---
CHECKED BS 80 MG.DL
--- NOTE | 2018-07-13 07:23 | NUR ---
ENDORSED TO NEXT SHIFT FOR CONTINUITY OF CARE. PT STABLE AT THIS TIME.
--- NOTE | 2018-07-13 07:30 | NUR ---
PATIENT WAS SLEEPING COMFORTABLY, EASILY AROUSABLE BY NAME. RESPIRATION EVEN, UNLABOR ON SIMPLE MASK AT 6LPM. SKIN DRY AND WARM. IV PATENT AND INTACT. FLACC 0. PLAN OF CARE WAS DISCUSSED WITH PATIENT. BED AT LOW POSITION, SIDE RAILS UP. CALL LIGHT WITHIN REACH
--- NOTE | 2018-07-13 07:52 | NUR ---
DR. WILLIAM WAS MADE AWARE OF PATIENT BP 82/53, WILL MEDICATE PER ORDER. PATIENT WAS AWAKE, RESPONSIVE TO NAME. VS WAS RECHECKED [id number].
--- NOTE | 2018-07-13 08:09 | NUR ---
PA WAS EATING BREAKFAST, NO SOB NOTED. WILL ATTEMPT THERAPY AT A LATER TIME. PT STILL WEARING OXYMIZZER AT 7L SAT99%
--- NOTE | 2018-07-13 08:17 | NUR ---
PATIENT HAS BEEN SCREENED AND CATEGORIZED HIGH NUTRITION RISK. PATIENT WILL BE SEEN WITHIN 1-2 DAYS OF ADMISSION. 07/13/18-07/14/[address]
[2018-07-13] MEDS: SENNA 8.6 MG TAB PO SCH ×2 (08:25→21:36)
[2018-07-13] MEDS: SOTALOL 80 MG TAB PO SCH ×2 (08:25→21:35)
[2018-07-13] MEDS: GABAPENTIN 100 MG CAP PO SCH ×3 (08:25→16:53)
[2018-07-13] MEDS: LACTOBACILLUS RHAMNOSUS GG 1 EACH CAP PO SCH (08:25)
[2018-07-13] MEDS: DIVALPROEX SPRINKLES 125 MG CAPDR PO SCH ×2 (08:25→21:36)
[2018-07-13] MEDS: POLYVINYL ALCOHOL 1.4% OP 15 ML SOL BOTH EYES SCH ×2 (08:26→21:24)
[2018-07-13] MEDS: FINASTERIDE 5 MG TAB PO SCH (08:26)
[2018-07-13] MEDS ORDERED: PIPER/TAZO 3.375GM/D5W PREMIX 50 ML IV SCH (09:00)
[2018-07-13] MEDS ORDERED: GABAPENTIN 300 MG CAP PO SCH (09:00)
[2018-07-13] MEDS ORDERED: DABIGATRAN ETEXILATE MESYLAT 75 MG CAP PO SCH ×2 (09:00)
[2018-07-13] MEDS: ALBUTEROL SULFATE/IPRATROPIU 3 ML SOL IH SCH ×3 (09:41→19:59)
--- NOTE | 2018-07-13 09:41 | NUR ---
PATIENTS SATURATION 99% ON 7LPM ON OXYMIZER. TITRATED TO 6LPM
--- NOTE | 2018-07-13 10:35 | NUR ---
PT RESTING COMFORTABLY, CALL LIGHT WITHIN REACH, WILL CONTINUE TO MONITOR
--- NOTE | 2018-07-13 11:21 | NUR ---
PT'S BLOOD SUGAR WAS 69, GAVE APPLE JUICE, WILL RECHECK AGAIN IN 1 HR
[2018-07-13 12:59] LABS: BASOPHILS # (AUTO) 0.2 K/uL (0.00-0.22); BASOPHILS % (AUTO) 2.1 % (0.0-2.0); EOSINOPHILS # (AUTO) 0.1 K/uL (0-0.4); EOSINOPHILS % (AUTO) 0.9 % (0.0-4.0); HEMATOCRIT 35.3 % (36-52); HEMOGLOBIN 10.1 g/dL (12.0-18.0); LYMPHOCYTES # (AUTO) 1.8 K/uL (2.0-11.5); LYMPHOCYTES % (AUTO) 17.3 % (20.5-51.1); MEAN CORPUSCULAR HEMOGLOBIN 20 pg (27-31); MEAN CORPUSCULAR HGB CONC 29 g/dL (33-37); MEAN CORPUSCULAR VOLUME 69.4 fL (80-94); MONOCYTES # (AUTO) 1.4 K/uL (0.8-1.0); NEUTROPHILS % (AUTO) 66.7 % (42.2-75.2); PLATELET COUNT (AUTO) 245 K/uL (140-450); RED BLOOD CELL COUNT(AUTO) 5.08 MIL/uL (4.20-6.10); RED CELL DISTRIBUTION WIDTH 22.6 % (11.6-13.7); WHITE BLOOD COUNT (AUTO) 10.4 K/uL (4.8-10.8)
--- NOTE | 2018-07-13 13:02 | NUR ---
PT CLEANED, CHANGED, AND REPOSITIONED, PT RESTING COMFORTABLY WITH TV ON, CALL LIGHT WITHIN REACH, WILL CONTINUE TO MONITOR
[2018-07-13 13:08] LABS: ANION GAP 8.3 (8-16); CARBON DIOXIDE 31.1 mmol/L (21-32); CHLORIDE 107 mmol/L (98-107); CREATININE 1.4 mg/dL (0.7-1.3); GLUCOSE 136 mg/dL (74-106); POTASSIUM 4.4 mmol/L (3.5-5.1); SODIUM SERUM 142 mmol/L (136-145); UREA NITROGEN, BLOOD 28 mg/dL (7-18)
[2018-07-13] MEDS: CLINDAMYCIN PHOS 600MG/D5W PM 50 ML IV SCH ×2 (13:14→21:25)
--- NOTE | 2018-07-13 13:24 | NUR ---
RECHECKED BLOOD SUGAR NOW 129, WILL CONTINUE TO MONITOR
--- NOTE | 2018-07-13 14:06 | NUR ---
TITRATED 02 TO 5LPM, PT SAT AT 96%. INFORMED PTS NURSE STEWART OF CHANGES
--- NOTE | 2018-07-13 14:40 | NUR ---
PT REPOSITIONED, WATCHING TV COMFORTABLY, ON OXYMIZER 5LPM, CALL LIGHT WITHIN REACH, WILL CONTINUE TO MONITOR
--- NOTE | 2018-07-13 14:53 | NUR ---
07/13/18 RD INITIAL ASSESSMENT COMPLETED PLEASE REFER TO NUTRITION ASSESSMENT UNDER CARE ACTIVITY FOR ESTIMATED NUTRITIONAL NEEDS. 1. RECOMMEND PROTEIN 60G CCHO PUREE DIET 2. RD TO FOLLOW-UP 3-5 DAYS, MODERATE RISK FRANKY CHOWDARY, RD
--- NOTE | 2018-07-13 17:07 | NUR ---
DR. WILLIAM WAS MADE AWARE OF PATIENT NOT URINATING ALL DAY, ORDERED TO CONTINUE TO MONITOR.
--- NOTE | 2018-07-13 18:12 | NUR ---
PT RESTING COMFORTABLY, NO RESPIRATORY DISTRESS NOTED ON 5LPM OXYMIZER, CALL LIGHT WITHIN REACH, WILL CONTINUE TO MONITOR
--- NOTE | 2018-07-13 19:24 | NUR ---
ENDORSEMENT GIVEN TO RELIGIOUS EDUCATION COORDINATOR NURSE. PATIENT IS STABLE AT THIS TIME
--- NOTE | 2018-07-13 19:24 | NUR ---
RECEIVED REPORT FROM DAKOTAH RN DAYSHIFT NURSE AT BEDSIDE FOR CONTINUITY OF CARE, PT IN STABLE CONDITION.
--- NOTE | 2018-07-13 20:06 | NUR ---
PT IN BED HOB UP 45% AND HE IS AOX1. HE IS ALERT AND ABLE TO ANSWER BASIC QUESTIONS. HE HAS NO C/O OF PAIN, PT ON OXYMIZER AT 5 LITERS 02, ALL FALLS PRECAUTIONS IN PLACE. PT LUNG SOUNDS DIMINISHED BILATERALLY,BOWEL SOUNDS HYPOACTIVE BUT PRESENT. SKIN INTACT EXCEPT FOR SCATTERED CLOSED BLISTERS ON R UPPER ARM AND SOME BRUISING UNDER ELBOW. CALL RUBIO IN REACH AND AL NEEDS ATTENDED.
--- NOTE | 2018-07-13 20:11 | NUR ---
RECEIVED PATIENT ON 5L OXYMIZER, PULSE OX SAT 92%. SCHEDULED BREATHING TREATMENT ADMINISTERED. TOLERATED TX WELL, NO ADVERSE SIDE EFFECTS. PLACED PATIENT BACK ON 5L OXYMIZER. NO ACUTE RESPIRATORY DISTRESS NOTED AT THIS TIME. WILL CONTINUE TO MONITOR.
[2018-07-13] MEDS ORDERED: MONTELUKAST SODIUM 10 MG TAB PO SCH (21:00)
--- NOTE | 2018-07-13 21:15 | NUR ---
ACCOUNTING SOFTWARE SPECIALIST'S IN ROOM TURNING, CHANGING AND REPOSITIONING PT.
--- NOTE | 2018-07-13 21:30 | NUR ---
PT IN BED HOB UP 45%. OXYMIZER WAS OFF, PT SAID THAT IT KEEP FALLING OFF AND ASKED IF I COULD TAPE IT DOWN. OXYMIZER TAPED DOWN REQUESTED. PT GIVEN ALL DUE MEDS, FLUIDS.. N/S REPLACED ORDERED AND CLINDAMYCIN RUNNING AT 100MLS IVP, ORDERED. PT C/O BACK PAIN 10/04, AND WAS GIVEN MORPHINE IVP ORDERED. PT REQUESTED BOOST AND WAS BOOSTED UP. RESPIRATORY WAS CALLED REGARDING BIPAP ORDER. RT AWARE AND WILL RETURN TO FLOOR TO SET UP PT FOR BIPAP OVERNIGHT. PT MADE AWARE. ALL FALLS PRECAUTIONS IN PLACE, AND CALL RBUIO IN REACH.
--- NOTE | 2018-07-13 21:35 | NUR ---
PT FINGERSTICK 90 NO COVERAGE NEEDED.
--- NOTE | 2018-07-13 22:30 | NUR ---
PT SET UP IN BIPAP BY RESPIRATORY THERAPIST.
--- NOTE | 2018-07-13 22:40 | NUR ---
PATIENT PLACED ON BIPAP PER NOC ORDER. SKIN BARRIER GEL IN PLACE. CONTINUOUS PULSE OX ON AND FUNCTIONING. ALARMS ON AND FUNCTIONING. NO RESPIRATORY DISTRESS NOTED AT THIS TIME. WILL CONTINUE TO MONITOR.
[2018-07-14] VITALS (7 sets, daily range): BP systolic 85–94; BP diastolic 54–63
--- NOTE | 2018-07-14 00:20 | NUR ---
PT IN BED SLEEPING, BIPAP THERAPY IN PROGRESS NO S/S OF PAIN OR DISTRESS NOTED. V/S FOLLOWS T 97. P 91 R 18 B/P 86/55 02 915 ON BIPAP. ALL FALLS PRECAUTIONS IN PLACE.
--- NOTE | 2018-07-14 01:45 | NUR ---
PT TURNED , CHANGED AND REPOSITIONED. BIPAP MASK RE-ADJUSTED DUE TO PT TAKING OFF. PT STATING AT 97% WITH BIPAP ON . PT HAD NO C/O OF PAIN ALL REQUESTED NEEDS ATTENDED.
[2018-07-14] MEDS ORDERED: LORazepam 2 MG/ML VIAL IM/IVP PRN (03:15)
--- NOTE | 2018-07-14 03:20 | NUR ---
PT REFUSE BIPAP MASK. PLACED BACK ON OXYMIZER AT 5 LITERS N/C T 98.1 P 61 R 18 B/P 143/93 02% 92% ON ROOM AIR. RT NOTIFIED.
--- NOTE | 2018-07-14 04:00 | NUR ---
PT IN BED ALL FALLS PRECAUTIONS IN PLACE, PT HAS OXYMIZER AT 5L SUPPLEMENTAL 02. PT TURNED AND REPOSITIONED WITH HOB UP 45%. ALL PT REQUESTS ATTENDED. V/S FOLLOWS T 97.7 P 78 R 18 B/P 92/56 02 97%.
[2018-07-14] MEDS: CLINDAMYCIN PHOS 600MG/D5W PM 50 ML IV SCH ×2 (04:53→13:37)
--- NOTE | 2018-07-14 05:00 | NUR ---
LABS AT BEDSIDE, ROPE MAKER UNABLE TO OBTAIN A CBC DUE TO PT MOVING AND PT BEING A HARD STICK.
[2018-07-14] MEDS: PANTOPRAZOLE 40 MG INJ VIAL IVP SCH (05:53)
[2018-07-14] MEDS: LEVOTHYROXINE 0.025 MG TAB PO SCH (06:02)
[2018-07-14] MEDS: BLOOD GLUCOSE MONITORING 1 DEV DEV FS SCH ×2 (06:17→12:05)
--- NOTE | 2018-07-14 06:18 | NUR ---
PT GIVEN AM PROTONIX IV AND ORDERED SYNTHROID.PT ALSO C/O OF NAUSEA. PT GIVEN DISPOSABLE BAG AND ZOFRAN IVP ORDERED.
[2018-07-14] MEDS ORDERED: guaiFENesin DM 200/20 MG-10 ML 10 ML UDC PO PRN (06:35)
--- NOTE | 2018-07-14 06:38 | NUR ---
PT REQUESTING MEDICATION FOR COUGHING, SPOKE WITH DR. QUEVEDO WHO SAID HE WILL PUT IN AN ORDER FOR COUGH MEDICATION.
[2018-07-14 06:49] LABS: MAGNESIUM 2.3 mg/dL (1.8-2.4); PHOSPHORUS 3.2 mg/dL (2.5-4.9)
[2018-07-14] MEDS: ALBUTEROL SULFATE/IPRATROPIU 3 ML SOL IH SCH ×2 (07:16→12:58)
[2018-07-14 07:24] LABS: ANION GAP 13.2 (8-16); CARBON DIOXIDE 24.5 mmol/L (21-32); CHLORIDE 105 mmol/L (98-107); CREATININE 1.4 mg/dL (0.7-1.3); GLUCOSE 85 mg/dL (74-106); POTASSIUM 4.7 mmol/L (3.5-5.1); SODIUM SERUM 138 mmol/L (136-145); UREA NITROGEN, BLOOD 32 mg/dL (7-18)
--- NOTE | 2018-07-14 07:28 | NUR ---
REPORT GIVEN TO GRAZYNA RN DAYSHIFT NURSE AT BEDSIDE FOR CONTINUITY OF CARE, PT IN STABLE CONDITION.
--- NOTE | 2018-07-14 07:30 | NUR ---
RECEIVED BEDSIDE REPORT FROM COLORMAN NURSE FOR CONTINUITY OF CARE. PATIENT IS AOX2 TO NAME, AND PLACE. ABLE TO FOLLOW SIMPLE COMMANDS AND MAKE NEEDS KNOWN. DENIES PAIN AND SOB. PATIENT IS SITTING UP ON BED AT THIS TIME WITH BED OF HEAD ELEVATED 30 DEGREE. PATIENT IS ON 5L OXYMIZER, NO REDNESS AROUND CHEEKS AND TUBING PLACEMENT AREA. RESPIRATION EVEN AND UNLABORED. NO SIGNS OF DISTRESS NOTED. IV ON LFA 22G, CLEAN AND INTACT, AND INFUSING PER MD ORDER. BRUISES ON BILATERALLY UPPER ARM NOTED, OTHERWISE SKIN INTACT AND DRY. PATIENT IS BEDREST AND INCONTINENT. SAFETY MEASURES IN PLACE. ASPIRATION PRECAUTION AND FALL PRECAUTION INITIALED. TELE MONITOR ATTACHED. BED IN LOW POSITION AND CALL LIGHT WITHIN REACH. INSTRUCTED PATIENT TO USE THE CALL LIGHT FOR ANY ASSISTANCE AND PATIENT WAS AWARE.
[2018-07-14 08:27] LABS: FOLIC ACID 16.4 ng/mL (>3.0)
[2018-07-14] MEDS: SENNA 8.6 MG TAB PO SCH (09:07)
[2018-07-14] MEDS: DIVALPROEX SPRINKLES 125 MG CAPDR PO SCH (09:07)
[2018-07-14] MEDS: LACTOBACILLUS RHAMNOSUS GG 1 EACH CAP PO SCH (09:07)
[2018-07-14] MEDS: FINASTERIDE 5 MG TAB PO SCH (09:07)
[2018-07-14] MEDS: SOTALOL 80 MG TAB PO SCH (09:08)
[2018-07-14] MEDS: GABAPENTIN 100 MG CAP PO SCH ×2 (09:08→13:00)
[2018-07-14] MEDS: POLYVINYL ALCOHOL 1.4% OP 15 ML SOL BOTH EYES SCH (09:09)
--- NOTE | 2018-07-14 09:25 | NUR ---
ADMINISTERED MEDS PER MD ORDER, PATIENT TOLERATED WELL. REPOSITIONED PATIENT TO HIS LEFT LATERAL SIDE AND PATIENT TOLERATED WELL. PATIENT IS ON 3L OXYMIZER AND SPO2 IS AT 94%. TELE MONITOR ATTACHED. SAFETY MEASURES IN PLACE. INSTRUCTED PATIENT TO USE THE CALL LIGHT FOR ANY ASSISTANCE.
--- NOTE | 2018-07-14 10:28 | NUR ---
ABG RESULTS GIVEN TO . PHYSICIAN REQUESTS PT TO BE PLACED ON BIPAP. WILL CONTINUE TO MONITOR.
--- NOTE | 2018-07-14 11:01 | NUR ---
RT PUT ON THE BIPAP ON PATIENT. PATIENT IS VERY AGITATED AND ATTEMPTED TO PULL OUT THE BIPAP. ADMINISTERED PRN ATIVAN. SAFETY MEASURES IN PLACE.
--- NOTE | 2018-07-14 11:02 | NUR ---
PT PLACED ON BIPAP PER ABG RESULTS WITH SETTINGS 12/6, R 14, FIO2 50%. PROTECTA GEL PLACED UNDER MASK FOR SKIN PROTECTION. ALARM ON AND FUNCTIONING. NURSE AWARE.
--- NOTE | 2018-07-14 11:10 | NUR ---
PATIENT WAS SLEEPING DEEPLY AFTER IVP OF ATIVAN. WAS AROUSABLE BY REPOSITIONING. BP WAS LOW ON 76/[address] WILLIAM WAS AT BEDSIDE.
--- NOTE | 2018-07-14 11:50 | NUR ---
CHECKED PATIENT'S BLOOD GLUCOSE AND RECEIVED 60. NOTIFIED LOG SCALER. PATIENT IS SLEEPING ON BED AND CHEST RISE NOTABLE. SAFETY MEASURES IN PLACE. TELE MONITOR ATTACHED.
--- NOTE | 2018-07-14 12:05 | NUR ---
ADMINISTERED PRN 50% DEXTROSE FOR LOW BLOOD GLUCOSE. WILL RECHECK BLOOD GLUCOSE IN 15 MINS. Addendum: 07/14/18 at 2028 by Tiffanie Armstrong RN BLOOD GLUCOSE [address] LI WAS AWARE AND SAID TO ADMINISTER D50 VIA IVP.
--- NOTE | 2018-07-14 12:20 | NUR ---
CHECKED PATIENT'S BLOOD GLUCOSE AND RECEIVED 156. NOTIFIED GAMBLING BOX PERSON.
--- NOTE | 2018-07-14 12:28 | NUR ---
CALLED DR WILLIAM ON REGARDS OF PATIENT'S CURRENT CONDITION AND REPORTED TO DR WILLIAM THAT PATIENT'S BP 90/54, PULSE 90, MAP 65, SPO2 [address] WILLIAM, ELEVATED BED OF HEAD TO 45 DEGREE AND MONITOR PATIENT'S BP AND MAP CLOSELY.
[2018-07-14] MEDS: NACL 0.9% 1,000 ML IV SCH (12:48)
--- NOTE | 2018-07-14 13:39 | NUR ---
PATIENT IS ASLEEP THIS TIME. BP 99/67, PULSE 101, MAP 76, SPO2 96%. NO SIGNS OF DISTRESS NOTED. SAFETY MEASURES IN PLACE. TELE MONITOR ATTACHED.
--- NOTE | 2018-07-14 14:10 | NUR ---
PT AWAKE AND AGITATED AT THIS TIME. PT RIPPED OFF BIPAP MASK AND WILL NOT ALLOW BIPAP TO BE PLACED BACK ON. PT PLACED ON 3L OXYMIZER SPO2 94%. NURSE MADE AWARE OF PT STATUS.
[2018-07-14] MEDS ORDERED: HALOPERIDOL IM 5 MG/ML VIAL IM PRN (14:20)
--- NOTE | 2018-07-14 14:55 | NUR ---
PATIENT WAS AGITATED AND PULLED OUT GOWN, TELE MONITOR, OXIMIZER. HE WAS ATTEMPTING TO PULL OUT IV LINE. NOTIFIED DR WILLIAM ON REGARDS PATIENT'S BEHAVIOR AND DR WILLIAM CAME TO BEDSIDE TO SEE PATIENT. ADMINISTERED PRN HALDOL IM.SAFELY MEASURES IN PLACE.
[2018-07-14] MEDS ORDERED: MORPHINE SULFATE 2 MG/ML SYR IVP SCH (15:00)
--- NOTE | 2018-07-14 15:05 | NUR ---
[facility] CALLED. PT INTUBATED WITH 7.5 ETT. TUBE SECURED WITH ANCHOR'FAST. RT PAUL AT CODE WELL. TUBE PLACEMENT CONFIRMED BY MD HACKETT AND COLOR CHANGE.
--- NOTE | 2018-07-14 15:07 | NUR ---
ARRIVED AT [facility] COMPRESSIONS ALREADY STARTED. STARTED MANUALLY VENTILATING PT WITH AMBU BAG. PT THEN INTUBATED BY ER PHYSICIAN,WITH A 7.5 ETT PROPER PLACEMENT CONFIRMED BY YELLOW COLOR CHANGE ON CO2 DETECTOR. BILATERAL BREATH SOUNDS HEARD ON AUSCULTATION BY ER PHYSICIAN. KAYLYN ZAMARRIPA PRESENT.
--- NOTE | 2018-07-14 15:30 | NUR ---
HERB[facility] GATICA [facility] AND INFORMED FER (DIRECTOR) AND PT'S DPOE PANCHO CYR THAT PT HAS PASSED.
--- NOTE | 2018-07-14 15:55 | NUR ---
FER FROM [facility] CAME AND STATED MR. LEROY HAS AN ADVANCE DIRECTIVE THAT HE WANTS HIS BODY DONATED TO [facility] WHEN HE DIES. SPOKE WITH LASHELL [employer] INVENTORY CLERK THAT SHE CANNOT PULLED OUT PT'S FILE DUE TO TECHNICAL ISSUES SO SHE ASKED FER TO FAX IT TO [facility].
--- NOTE | 2018-07-14 16:00 | NUR ---
CALLED [facility] AND SPOKE WITH GUSTAVO PT'S INFO GIVEN. GUSTAVO STATED A FORESTRY PATROLMAN WILL CALL IN HOUR TO ASK QUESTIONS.
--- NOTE | 2018-07-14 16:15 | NUR ---
CALLED [facility] AND SPOKE WITH KD, CASE # GIVEN: [id number]. KD STATED PT DOES NOT QUALITY FOR TISSUE AND ORGAN DONATION. KD ALSO STATED THAT [facility] IS A DIFFERENT ENTITY AND TO GIVE THEM A CALL AFTER THE FLUE DUST LABORER RELEASE THE BODY.
--- NOTE | 2018-07-14 18:11 | NUR ---
DEPUTY VALDEZ RAMIREZ FROM [facility] OFF[facility] CALLED BACK. INFORMATION PROVIDED. CASE # GIVEN : [id number]. DEPUTY RAMIREZ STATED NOT A [facility] CASE.
--- NOTE | 2018-07-14 18:30 | NUR ---
CALLED [facility] [place] AND SPOKE WITH MADHURI. INFORMATION PROVIDED. MADHURI STATED THAT PT DOES NOT QUALIFY FOR BODY DONATION DUE TO HIS HIGH BMI. ESTEFANY-CHURNER CALLED [facility], STATED THEY WILL ENVIRONMENTAL ADVISOR THE BODY IN 2 HOURS. ESTEFANY LEFT A MESSAGE TO FER'S CELL PHONE.
--- NOTE | 2018-07-14 18:50 | NUR ---
FER CALLED BACK AND NOTIFIED THAT PT DOES NOT QUALIFY FOR BODY DONATION DUE TO HIGH BMI. FER ALSO NOTIFIED THAT THE BODY WILL BE PICKED UP IN 2 HOURS BY [facility]. MORTUARY ADDRESS AND PHONE NUMBER GIVEN TO FER, VERBALIZED UNDERSTANDING.
--- NOTE | 2018-07-14 19:41 | NUR ---
LATE ENTRY AT 1502- BUSINESS BANKING SALES ASSISTANT NOTED THAT PATIENT PULSE WAS DROPPING AND NOTIFIED CONTINUOUS ABSORPTION PROCESS OPERATOR. AND CONTINUOUS ABSORPTION PROCESS OPERATOR WENT TO ASSESS THE PATIENT AND FOUND PATIENT WITH NO PULSE AND NOT BREATHING. AT 1503- CHARGE CALLED FOR CODE BLUE AND STARTED CHEST COMPRESSION. CODE TEAM ARRIVED TO ROOM. 1ST EPINEPHRINE WAS ADMINISTERED VIA IVP. AT 1505- 2ND EPINEPHRINE ADMINISTERED VIA IVP. RHYTHM CHECKED AND RECEIVED NO PULSE-ASYSTOLE. CHEST COMPRESSION CONTINUE. AT 1506- BLOOD GLUCOSE CHECK PREFORMED AND RECEIVED GLUCOSE 37. ADMINISTERED 50% DEXTROSE VIA IVP. CHEST COMPRESSION CONTINUE. AT 1508- 3RD EPINEPHRINE ADMINISTERED VIA IVP. RHYTHM CHECKED AND RECEIVED NO PULSE-ASYSTOLE. CHEST COMPRESSION CONTINUE. 1511- RT APPLIED BIPAP. RHYTHM CHECKED AND RECEIVED NO PULSE-ASYSTOLE. CHEST COMPRESSION CONTINUE. 1513-4TH EPINEPHRINE ADMINISTERED VIA IVP. RHYTHM CHECKED AND RECEIVED NO PULSE-ASYSTOLE. CHEST COMPRESSION CONTINUE. 1516- BLOOD GLUCOSE CHECK PREFORMED AND RECEIVED GLUCOSE 67. 1517- CALCIUM CHLORIDE ADMINISTERED. 1518- AMIODARONE ADMINISTERED. 1520-RHYTHM CHECKED AND RECEIVED NO PULSE-ASYSTOLE. CHEST COMPRESSION CONTINUE. 1521- RHYTHM CHECKED AND RECEIVED NO PULSE-ASYSTOLE. DR HACKETT PRONOUNCED PATIENT'S CAUSE OF CARDIAC PULMONARY ARREST.
[2018-07-14] MEDS ORDERED: DABIGATRAN ETEXILATE MESYLAT 75 MG CAP PO SCH (21:00)
== END 2018-07-14 15:21 | disposition expired | DRG 871 ==
LOC: MED 00:15 → MTU 02:47
PROVIDERS: ADMIT General Practice; ATTEND General Practice
PROC: 5A12012 Performance of Cardiac Output, Single, Manual (ICD-10-PCS; principal; 2018-07-14)
PROC: 5A09357 Assistance with Respiratory Ventilation, Less than 24 Consecutive Hours, Continuous Positive Airway Pressure (ICD-10-PCS; 2018-07-14)
DX: A41.9 Sepsis, unspecified organism (principal); J69.0 Pneumonitis due to inhalation of food and vomit; N17.0 Acute kidney failure with tubular necrosis; E43 Unspecified severe protein-calorie malnutrition; I50.43 Acute on chronic combined systolic (congestive) and diastolic (congestive) heart failure; J96.21 Acute and chronic respiratory failure with hypoxia; J96.22 Acute and chronic respiratory failure with hypercapnia; Z68.41 Body mass index [BMI] 40.0-44.9, adult; E66.2 Morbid (severe) obesity with alveolar hypoventilation; I13.0 Hypertensive heart and chronic kidney disease with heart failure and stage 1 through stage 4 chronic kidney disease, or unspecified chronic kidney disease; D68.9 Coagulation defect, unspecified; E72.20 Disorder of urea cycle metabolism, unspecified; E03.9 Hypothyroidism, unspecified; E11.22 Type 2 diabetes mellitus with diabetic chronic kidney disease; E11.40 Type 2 diabetes mellitus with diabetic neuropathy, unspecified; E11.65 Type 2 diabetes mellitus with hyperglycemia; F31.9 Bipolar disorder, unspecified; G40.909 Epilepsy, unspecified, not intractable, without status epilepticus; I07.1 Rheumatic tricuspid insufficiency; I48.0 Paroxysmal atrial fibrillation; J44.9 Chronic obstructive pulmonary disease, unspecified; I25.10 Atherosclerotic heart disease of native coronary artery without angina pectoris; K21.9 Gastro-esophageal reflux disease without esophagitis; N18.3 Chronic kidney disease, stage 3 (moderate); E11.51 Type 2 diabetes mellitus with diabetic peripheral angiopathy without gangrene; M51.34 Other intervertebral disc degeneration, thoracic region; D50.9 Iron deficiency anemia, unspecified; I46.9 Cardiac arrest, cause unspecified; Z87.891 Personal history of nicotine dependence; Z88.6 Allergy status to analgesic agent; Z88.1 Allergy status to other antibiotic agents; Z88.0 Allergy status to penicillin; Z88.2 Allergy status to sulfonamides; Z91.018 Allergy to other foods; Z79.899 Other long term (current) drug therapy; Z86.718 Personal history of other venous thrombosis and embolism
CPT/HCPCS: 31500; 36415; 36600; 71045; 76604; 80048; 80053; 82140; 82607; 82728; 82746; 82803; 82948; 83036; 83540; 83605; 83690; 83735; 83880; 84100; 84439; 84443; 84484; 85025; 85045; 85610; 87040; 87081; 92950; 93005; 94640; 94660; 97161-GP; 99285; C9113; J0696; J1630; J1815; J2060; J2270; J2405; J3490; J7030; J7060; J7620; Q0092